=== PATIENT | female | born 1960 | race Caucasian/White ===

== ENCOUNTER → 2023-07-14 | Emergency (ER) | payer OTHER ==
[~2023-07-14] MED LIST: LIDOCAINE 4% PATCH ONE; dexAMETHasone 10 MG/ML VIAL ONE
--- OUTSIDE RECORDS SUMMARY | 2023-07-14 17:34 | XMS REPORT | Continuity of Care Document ---
Author Name Unknown Address [address] [facility] [address] [facility] [address] [place] [address] [facility] thconnect Address [address] [place] [address] Care Team Providers Care Model Maker Firearms Name Role Phone Damian Ling Primary Care Physician [phone] [email or web address] Attending Clinician Unavaila Tammy Cheung MD Attending Clinician [phone], [facility] Attending Clinician Unavailable TAMMY SPIVEY Attending Clinician Unavail able TAMMY SPIVEY Attending Clinician Unavail able Vincent RN, Matthew Attending Clinician Unavailab le Doctor Unassigned, [place] Attending Clinician U navailable [email or web address] Admitting Clinician Unavaildaria hooper Payers Payer Name Policy Type Policy Number Effective Date Expirati on Date Source Problems Condition Name Condition Details Condition Category Status Onset Date Resolution Date Last Treatment Date Treating Clinician Comments Source Hypothyroi dism Hypothyroi dism Disease Active 08-22 00:00: 00 Overview: Formattin g of this note might be different from the original. ICD10 Diagnosis Term Law Researcher Utility [facility] Chronic depressive personalit y disorder Chronic depressive personalit y disorder Disease Active 08-22 00:00: 00 [facility] Allergies, Adverse Reactions, Alerts Allergy Name Allergy Type Status Severity Reaction(s) Onset Date Inactive Date Treating Clinician Comments Source Penicill ins Propensi ty to adverse reaction s Active Rash 08-22 00:00: 00 [facility] PENICILL INS Drug Class Active Rash 08-22 00:00: 00 [facility] Social History Social Habit Start Date Stop Date Quantity Comments Source Exposure to SARS-CoV-2 (event) Not sure [facility] History SDOH Alcohol Frequency [facility] History SDOH Alcohol Std Drinks [facility] History SDOH Alcohol Binge [facility] Alcohol intake 2020-09-17 00:00:00 2020-09-17 00:00:00 Current drinker of alcohol (finding) [facility] Tobacco use and exposure 2020-02-20 00:00:00 2020-02-20 00:00:00 Never used [facility] History of tobacco use 2020-02-17 00:00:00 Smoker [facility] Alcohol Comment 2018-03-16 00:00:00 2018-03-16 00:00:00 occaisonal [facility] Sex Ass[birth year] At 1960 00:00:00 1960 00:00:00 [facility] Smoking Status Start Date Stop Date Source Former smoker 2020-02-20 00:00:00 2020-02-20 00:00:00 [facility] Current every day smoker 2018-05-25 00:00:00 [facility] Medications Ordered Medication Name Filled Medication Name Start Date Stop Date Current Medication? Ordering Clinician Indication Dosage Frequency Signature (SIG) Comments Components Source TRAZODONE 50 mg tablet 07-22 00:00: 00 Yes [id number] 100mg TAKE 2 TABLETS BY MOUTH AT BEDTIME [facility] TRAZODONE 50 mg tablet 01-25 00:00: 00 Yes [id number] 100mg TAKE 2 TABLETS BY MOUTH AT BEDTIME [facility] TRAZODONE 50 mg tablet 01-25 00:00: 00 Yes [id number] 100mg TAKE 2 TABLETS BY MOUTH AT BEDTIME [facility] TRAZODONE 50 mg tablet 01-25 00:00: 00 07-22 00:00 :00 No [id number] 100mg TAKE 2 TABLETS BY MOUTH AT BEDTIME [facility] azaTHIOprin e 50 mg tablet 11-08 00:00: 00 Yes [id number] TAKE 2 TABLETS BY MOUTH TWICE A DAY [facility] azaTHIOprin e 50 mg tablet 0 11-08 00:00: 00 Yes [id number] TAKE 2 TABLETS BY MOUTH TWICE A DAY [facility] azaTHIOprin e 50 mg tablet 0 11-08 00:00: 00 Yes [id number] TAKE 2 TABLETS BY MOUTH TWICE A DAY [facility] azaTHIOprin e 50 mg tablet 0 11-08 00:00: 00 Yes [id number] TAKE 2 TABLETS BY MOUTH TWICE A DAY [facility] azaTHIOprin e 50 mg tablet 0 11-08 00:00: 00 Yes [id number] TAKE 2 TABLETS BY MOUTH TWICE A DAY [facility] TRAZODONE 50 MG ORAL TAB 0 09-17 16:37: 11 09-17 00:00 :00 No 1 DAILY [facility] TRAZODONE 50 MG ORAL TAB 0 09-17 16:37: 11 09-17 00:00 :00 No 1 DAILY [facility] topiramate 50 mg tablet 09-17 00:00: 00 Yes 50mg 1 tablet 2 (two) times daily. [facility] pyridostigm ine (MESTINON) 60 mg tablet 09-17 00:00: 00 Yes [id number] 60mg Take 1 tablet by mouth 4 (four) times daily. [facility] traZODone 50 mg tablet 0 09-17 00:00: 00 Yes [id number] 100mg Take 2 tablets by mouth at bedtime. [facility] azaTHIOprin e 50 mg tablet 0 09-17 00:00: 00 Yes [id number] TAKE 2 TABLETS BY MOUTH TWICE A DAY [facility] pyridostigm ine (MESTINON) 60 mg tablet 09-17 00:00: 00 Yes [id number] 60mg Take 1 tablet by mouth 4 (four) times daily. [facility] traZODone 50 mg tablet 0 09-17 00:00: 00 Yes [id number] 100mg Take 2 tablets by mouth at bedtime. [facility] azaTHIOprin e 50 mg tablet 09-17 00:00: 00 Yes [id number] TAKE 2 TABLETS BY MOUTH TWICE A DAY [facility] topiramate 50 mg tablet 09-17 00:00: 00 Yes 50mg Take 1 tablet by mouth 2 (two) times daily. [facility] pyridostigm ine (MESTINON) 60 mg tablet 09-17 00:00: 00 Yes [id number] 60mg Take 1 tablet by mouth 4 (four) times daily. [facility] traZODone 50 mg tablet 09-17 00:00: 00 Yes [id number] 100mg Take 2 tablets by mouth at bedtime. [facility] azaTHIOprin e 50 mg tablet 09-17 00:00: 00 Yes [id number] TAKE 2 TABLETS BY MOUTH TWICE A DAY [facility] pyridostigm ine (MESTINON) 60 mg tablet 09-17 00:00: 00 Yes [id number] 60mg Take 1 tablet by mouth 4 (four) times daily. [facility] traZODone 50 mg tablet 09-17 00:00: 00 Yes [id number] 100mg Take 2 tablets by mouth at bedtime. [facility] azaTHIOprin e 50 mg tablet 09-17 00:00: 00 Yes [id number] TAKE 2 TABLETS BY MOUTH TWICE A DAY [facility] pyridostigm ine (MESTINON) 60 mg tablet 09-17 00:00: 00 Yes [id number] 60mg Take 1 tablet by mouth 4 (four) times daily. [facility] traZODone 50 mg tablet 09-17 00:00: 00 Yes [id number] 100mg Take 2 tablets by mouth at bedtime. [facility] topiramate 50 mg tablet 09-17 00:00: 00 Yes 50mg Take 1 tablet by mouth 2 (two) times daily. [facility] pyridostigm ine (MESTINON) 60 mg tablet 09-17 00:00: 00 Yes [id number] 60mg Take 1 tablet by mouth 4 (four) times daily. [facility] traZODone 50 mg tablet 09-17 00:00: 00 Yes [id number] 100mg Take 2 tablets by mouth at bedtime. [facility] topiramate 50 mg tablet 09-17 00:00: 00 Yes 50mg Take 1 tablet by mouth 2 (two) times daily. [facility] pyridostigm ine (MESTINON) 60 mg tablet 09-17 00:00: 00 Yes [id number] 60mg Take 1 tablet by mouth 4 (four) times daily. [facility] pyridostigm ine (MESTINON) 60 mg tablet 09-17 00:00: 00 Yes [id number] 60mg Take 1 tablet by mouth 4 (four) times daily. [facility] topiramate 50 mg tablet 09-17 00:00: 00 Yes 50mg Take 1 tablet by mouth 2 (two) times daily. [facility] topiramate 50 mg tablet 09-17 00:00: 00 Yes 50mg Take 1 tablet by mouth 2 (two) times daily. [facility] pyridostigm ine (MESTINON) 60 mg tablet 09-17 00:00: 00 Yes [id number] 60mg Take 1 tablet by mouth 4 (four) times daily. [facility] topiramate 50 mg tablet 09-17 00:00: 00 Yes 50mg Take 1 tablet by mouth 2 (two) times daily. [facility] traZODone 50 mg tablet 09-17 00:00: 00 01-25 00:00 :00 No [id number] 100mg Take 2 tablets by mouth at bedtime. [facility] traZODone 50 mg tablet 09-17 00:00: 00 01-25 00:00 :00 No [id number] 100mg Take 2 tablets by mouth at bedtime. [facility] azaTHIOprin e 50 mg tablet 09-17 00:00: 00 11-08 00:00 :00 No [id number] TAKE 2 TABLETS BY MOUTH TWICE A DAY [facility] topiramate 50 mg tablet 0 09-17 00:00: 00 09-17 00:00 :00 No 50mg 1 tablet 2 (two) times daily. [facility] topiramate 50 mg tablet 0 09-17 00:00: 00 09-17 00:00 :00 No 50mg 1 tablet 2 (two) times daily. [facility] topiramate 50 mg tablet 09-17 00:00: 00 09-17 00:00 :00 No 50mg 1 tablet 2 (two) times daily. [facility] azaTHIOprin e 50 mg tablet 07-18 00:00: 00 Yes [id number] TAKE 2 TABLETS BY MOUTH TWICE A DAY [facility] azaTHIOprin e 50 mg tablet 07-18 00:00: 00 09-17 00:00 :00 No [id number] TAKE 2 TABLETS BY MOUTH TWICE A DAY [facility] azaTHIOprin e 50 mg tablet 07-18 00:00: 00 09-17 00:00 :00 No [id number] TAKE 2 TABLETS BY MOUTH TWICE A DAY [facility] azaTHIOprin e 50 mg tablet 2019-05 00:00: 00 Yes [id number] TAKE 2 TABLETS BY MOUTH TWICE A DAY [facility] pyridostigm ine (MESTINON) 60 mg tablet 2019-05 00:00: 00 Yes [id number] 60mg Take 1 tablet by mouth 4 (four) times daily. [facility] pyridostigm ine (MESTINON) 60 mg tablet 2019-05 0 00:00: 00 Yes [id number] 60mg Take 1 tablet by mouth 4 (four) times daily. [facility] pyridostigm ine (MESTINON) 60 mg tablet 2019-05 0 00:00: 00 09-17 00:00 :00 No [id number] 60mg Take 1 tablet by mouth 4 (four) times daily. [facility] pyridostigm ine (MESTINON) 60 mg tablet 2019-05 00:00: 00 09-17 00:00 :00 No [id number] 60mg Take 1 tablet by mouth 4 (four) times daily. [facility] azaTHIOprin e 50 mg tablet 2019-05 00:00: 00 07-18 00:00 :00 No [id number] TAKE 2 TABLETS BY MOUTH TWICE A DAY [facility] sitagliptin phosphate (JANUVIA ORAL) 2019-05 0-05 19:51: 11 Yes Take 1 TAB-CAP/M2 by mouth daily. [facility] sitagliptin phosphate (JANUVIA ORAL) 2019-05 005 19:51: 11 Yes Take 1 TAB-CAP/M2 by mouth daily. [facility] sitagliptin phosphate (JANUVIA ORAL) 2019-05 0-05 19:51: 11 Yes Take 1 TAB-CAP/M2 by mouth daily. [facility] sitagliptin phosphate (JANUVIA ORAL) 2019-05 0-05 19:51: 11 Yes Take 1 TAB-CAP/M2 by mouth daily. [facility] sitagliptin phosphate (JANUVIA ORAL) 2019-05 005 19:51: 11 Yes Take 1 TAB-CAP/M2 by mouth daily. [facility] sitagliptin phosphate (JANUVIA ORAL) 2019-05 0-05 19:51: 11 Yes Take 1 TAB-CAP/M2 by mouth daily. [facility] sitagliptin phosphate (JANUVIA ORAL) 2019-05 0-05 19:51: 11 Yes Take 1 TAB-CAP/M2 by mouth daily. [facility] sitagliptin phosphate (JANUVIA ORAL) 2019-05 0-05 19:51: 11 Yes Take 1 TAB-CAP/M2 by mouth daily. [facility] sitagliptin phosphate (JANUVIA ORAL) 2019-05 0-05 19:51: 11 Yes Take 1 TAB-CAP/M2 by mouth daily. [facility] sitagliptin phosphate (JANUVIA ORAL) 2019-05 0-05 19:51: 11 Yes Take 1 TAB-CAP/M2 by mouth daily. [facility] sitagliptin phosphate (JANUVIA ORAL) 2019-05 19:51: 11 Yes Take 1 TAB-CAP/M2 by mouth daily. [facility] sitagliptin phosphate (JANUVIA ORAL) 2019-05 19:51: 11 Yes Take 1 TAB-CAP/M2 by mouth daily. [facility] sitagliptin phosphate (JANUVIA ORAL) 2019-05 19:51: 11 Yes Take 1 TAB-CAP/M2 by mouth daily. [facility] sitagliptin phosphate (JANUVIA ORAL) 2019-05 14:51: 11 Yes Take 1 TAB-CAP/M2 by mouth daily. [facility] azaTHIOprin e 50 mg tablet 2019-05 00:00: 00 Yes [id number] TAKE 2 TABLETS BY MOUTH TWICE A DAY [facility] pyridostigm ine (MESTINON) 60 mg tablet 2019-05 00:00: 00 Yes [id number] 60mg Take 1 tablet by mouth 4 (four) times daily. [facility] azaTHIOprin e 50 mg tablet 2019-05 00:00: 00 Yes [id number] TAKE 2 TABLETS BY MOUTH TWICE A DAY [facility] pyridostigm ine (MESTINON) 60 mg tablet 2019-05 00:00: 00 Yes [id number] 60mg Take 1 tablet by mouth 4 (four) times daily. [facility] azaTHIOprin e 50 mg tablet 2019-05 00:00: 03-09 00:00 :00 No [id number] TAKE 2 TABLETS BY MOUTH TWICE A DAY [facility] pyridostigm ine (MESTINON) 60 mg tablet 2019-05 00:00: 03-09 00:00 :00 No [id number] 60mg Take 1 tablet by mouth 4 (four) times daily. [facility] azaTHIOprin e 50 mg tablet 12-11 00:00: 00 Yes TAKE 2 TABLETS BY MOUTH TWICE A DAY [facility] azaTHIOprin e 50 mg tablet 12-11 00:00: 00 Yes TAKE 2 TABLETS BY MOUTH TWICE A DAY [facility] azaTHIOprin e 50 mg tablet 12-11 00:00: 00 Yes TAKE 2 TABLETS BY MOUTH TWICE A DAY [facility] azaTHIOprin e 50 mg tablet 12-11 00:00: 00 Yes TAKE 2 TABLETS BY MOUTH TWICE A DAY [facility] azaTHIOprin e 50 mg tablet 12-11 00:00: 00 02-19 00:00 :00 No TAKE 2 TABLETS BY MOUTH TWICE A DAY [facility] azaTHIOprin e 50 mg tablet 12-11 00:00: 00 02-19 00:00 :00 No TAKE 2 TABLETS BY MOUTH TWICE A DAY [facility] pyridostigm ine (MESTINON) 60 mg tablet 10-23 00:00: 00 Yes 60mg Take 1 tablet by mouth 4 (four) times daily. [facility] pyridostigm ine (MESTINON) 60 mg tablet 10-23 00:00: 00 Yes 60mg Take 1 tablet by mouth 4 (four) times daily. [facility] pyridostigm ine (MESTINON) 60 mg tablet 10-23 00:00: 00 Yes 60mg Take 1 tablet by mouth 4 (four) times daily. [facility] pyridostigm ine (MESTINON) 60 mg tablet 10-23 00:00: 00 Yes 60mg Take 1 tablet by mouth 4 (four) times daily. [facility] pyridostigm ine (MESTINON) 60 mg tablet 10-23 00:00: 00 Yes 60mg Take 1 tablet by mouth 4 (four) times daily. [facility] pyridostigm ine (MESTINON) 60 mg tablet 10-23 00:00: 00 02-19 00:00 :00 No 60mg Take 1 tablet by mouth 4 (four) times daily. [facility] pyridostigm ine (MESTINON) 60 mg tablet 10-23 00:00: 00 02-19 00:00 :00 No 60mg Take 1 tablet by mouth 4 (four) times daily. [facility] AZATHIOPRIN E 50 mg tablet 1 00:00: 00 Yes TAKE 2 TABLETS BY MOUTH TWICE A DAY [facility] AZATHIOPRIN E 50 mg tablet 06-09 00:00: 00 Yes TAKE 2 TABLETS BY MOUTH TWICE A DAY [facility] AZATHIOPRIN E 50 mg tablet 06-09 00:00: 00 12-11 00:00 :00 No TAKE 2 TABLETS BY MOUTH TWICE A DAY [facility] azaTHIOprin e 50 mg tablet 2018-05 00:00: 06-09 00:00 :00 No 100mg Take 2 tablets by mouth 2 (two) times daily. [facility] pyridostigm ine 60 mg tablet 01-25 00:00: 00 Yes TAKE 1 TABLET BY MOUTH 4 TIMES DAILY [facility] pyridostigm ine 60 mg tablet 01-25 00:00: 00 10-23 00:00 :00 No TAKE 1 TABLET BY MOUTH 4 TIMES DAILY [facility] sitagliptin phosphate (JANUVIA ORAL) 2017-05 20:05: 28 Yes Take 1 TAB-CAP/M2 by mouth daily. [facility] TRAZODONE 50 MG ORAL TAB 2017-05 20:05: 28 Yes 1 DAILY [facility] sitagliptin phosphate (JANUVIA ORAL) 2017-05 20:05: 28 Yes Take 1 TAB-CAP/M2 by mouth daily. [facility] TRAZODONE 50 MG ORAL TAB 2017-05 20:05: 28 Yes 1 DAILY [facility] sitagliptin phosphate (JANUVIA ORAL) 2017-05 20:05: 28 Yes Take 1 TAB-CAP/M2 by mouth daily. [facility] TRAZODONE 50 MG ORAL TAB 2017-05 20:05: 28 Yes 1 DAILY [facility] TRAZODONE 50 MG ORAL TAB 2017-05 20:05: 28 Yes 1 DAILY [facility] TRAZODONE 50 MG ORAL TAB 2017-05 20:05: 28 Yes 1 DAILY [facility] TRAZODONE 50 MG ORAL TAB 2017-05 20:05: 28 Yes 1 DAILY [facility] TRAZODONE 50 MG ORAL TAB 2017-05 20:05: 28 Yes 1 DAILY [facility] sitagliptin phosphate (JANUVIA ORAL) 2017-05 20:05: 28 Yes Take 1 TAB-CAP/M2 by mouth daily. [facility] TRAZODONE 50 MG ORAL TAB 2017-05 20:05: 28 Yes 1 DAILY [facility] sitagliptin phosphate (JANUVIA ORAL) 2017-05 20:05: 28 Yes Take 1 TAB-CAP/M2 by mouth daily. [facility] TRAZODONE 50 MG ORAL TAB 2017-05 20:05: 28 Yes 1 DAILY [facility] sitagliptin phosphate (JANUVIA ORAL) 2017-05 20:05: 28 Yes Take 1 TAB-CAP/M2 by mouth daily. [facility] TRAZODONE 50 MG ORAL TAB 2017-05 20:05: 28 Yes 1 DAILY [facility] metoprolol succinate XL 25 mg 24 hr tablet 2017-05 00:00: 00 Yes [facility] triamterene -hydrochlor othiazide 37.5-25 mg per capsule 2017-05 00:00: 00 Yes [facility] metoprolol succinate XL 25 mg 24 hr tablet 2017-05 00:00: 00 Yes [facility] triamterene -hydrochlor othiazide 37.5-25 mg per capsule 2017-05 00:00: 00 Yes [facility] metoprolol succinate XL 25 mg 24 hr tablet 2017-05 00:00: 00 Yes [facility] triamterene -hydrochlor othiazide 37.5-25 mg per capsule 2017-05 00:00: 00 Yes [facility] metoprolol succinate XL 25 mg 24 hr tablet 2017-05 00:00: 00 Yes [facility] triamterene -hydrochlor othiazide 37.5-25 mg per capsule 2017-05 00:00: 00 Yes [facility] metoprolol succinate XL 25 mg 24 hr tablet 2017-05 00:00: 00 Yes [facility] triamterene -hydrochlor othiazide 37.5-25 mg per capsule 2017-05 00:00: 00 Yes [facility] metoprolol succinate XL 25 mg 24 hr tablet 2017-05 00:00: 00 Yes [facility] triamterene -hydrochlor othiazide 37.5-25 mg per capsule 2017-05 00:00: 00 Yes [facility] metoprolol succinate XL 25 mg 24 hr tablet 2017-05 00:00: 00 Yes [facility] triamterene -hydrochlor othiazide 37.5-25 mg per capsule 2017-05 00:00: 00 Yes [facility] metoprolol succinate XL 25 mg 24 hr tablet 2017-05 00:00: 00 Yes [facility] triamterene -hydrochlor othiazide 37.5-25 mg per capsule 2017-05 00:00: 00 Yes [facility] metoprolol succinate XL 25 mg 24 hr tablet 2017-05 00:00: 00 Yes [facility] triamterene -hydrochlor othiazide 37.5-25 mg per capsule 2017-05 00:00: 00 Yes [facility] metoprolol succinate XL 25 mg 24 hr tablet 2017-05 00:00: 00 Yes [facility] triamterene -hydrochlor othiazide 37.5-25 mg per capsule 2017-05 00:00: 00 Yes [facility] metoprolol succinate XL 25 mg 24 hr tablet 2017-05 00:00: 00 Yes [facility] triamterene -hydrochlor othiazide 37.5-25 mg per capsule 2017-05 00:00: 00 Yes [facility] metoprolol succinate XL 25 mg 24 hr tablet 2017-05 00:00: 00 Yes [facility] triamterene -hydrochlor othiazide 37.5-25 mg per capsule 2017-05 00:00: 00 Yes [facility] metoprolol succinate XL 25 mg 24 hr tablet 2017-05 00:00: 00 Yes [facility] metoprolol succinate XL 25 mg 24 hr tablet 2017-05 00:00: 00 Yes [facility] triamterene -hydrochlor othiazide 37.5-25 mg per capsule 2017-05 00:00: 00 Yes [facility] triamterene -hydrochlor othiazide 37.5-25 mg per capsule 2017-05 00:00: 00 Yes [facility] metoprolol succinate XL 25 mg 24 hr tablet 2017-05 00:00: 00 Yes [facility] triamterene -hydrochlor othiazide 37.5-25 mg per capsule 2017-05 00:00: 00 Yes [facility] metoprolol succinate XL 25 mg 24 hr tablet 2017-05 00:00: 00 Yes [facility] triamterene -hydrochlor othiazide 37.5-25 mg per capsule 2017-05 00:00: 00 Yes [facility] metoprolol succinate XL 25 mg 24 hr tablet 2017-05 00:00: 00 Yes [facility] triamterene -hydrochlor othiazide 37.5-25 mg per capsule 2017-05 00:00: 00 Yes [facility] metoprolol succinate XL 25 mg 24 hr tablet 2017-05 00:00: 00 Yes [facility] triamterene -hydrochlor othiazide 37.5-25 mg per capsule 2017-05 00:00: 00 Yes [facility] metoprolol succinate XL 25 mg 24 hr tablet 2017-05 00:00: 00 Yes [facility] triamterene -hydrochlor othiazide 37.5-25 mg per capsule 2017-05 00:00: 00 Yes [facility] metoprolol succinate XL 25 mg 24 hr tablet 2017-05 00:00: 00 Yes [facility] triamterene -hydrochlor othiazide 37.5-25 mg per capsule 2017-05 009 00:00: 00 Yes [facility] metformin ER 500 mg 24 hr tablet 2017-05 008 00:00: 00 Yes [facility] tiZANidine 2 mg tablet 2017-05 008 00:00: 00 Yes [facility] topiramate 50 mg tablet 2017-05 008 00:00: 00 Yes [facility] buPROPion XL 300 mg 24 hr tablet 2017-05 008 00:00: 00 Yes [facility] escitalopra m oxalate 20 mg tablet 2017-05 008 00:00: 00 Yes [facility] metformin ER 500 mg 24 hr tablet 2017-05 008 00:00: 00 Yes [facility] tiZANidine 2 mg tablet 2017-05 008 00:00: 00 Yes [facility] topiramate 50 mg tablet 2017-05 008 00:00: 00 Yes [facility] buPROPion XL 300 mg 24 hr tablet 2017-05 008 00:00: 00 Yes [facility] escitalopra m oxalate 20 mg tablet 2017-05 008 00:00: 00 Yes [facility] metformin ER 500 mg 24 hr tablet 2017-05 008 00:00: 00 Yes [facility] tiZANidine 2 mg tablet 2017-05 008 00:00: 00 Yes [facility] topiramate 50 mg tablet 2017-05 008 00:00: 00 Yes [facility] buPROPion XL 300 mg 24 hr tablet 2017-05 008 00:00: 00 Yes [facility] escitalopra m oxalate 20 mg tablet 2017-05 008 00:00: 00 Yes [facility] metformin ER 500 mg 24 hr tablet 2017-05 008 00:00: 00 Yes [facility] tiZANidine 2 mg tablet 2017-05 008 00:00: 00 Yes [facility] topiramate 50 mg tablet 2017-05 008 00:00: 00 Yes [facility] buPROPion XL 300 mg 24 hr tablet 2017-05 008 00:00: 00 Yes [facility] [place] [facility] escitalopra m oxalate 20 mg tablet 2017-05 008 00:00: 00 Yes [facility] metformin ER 500 mg 24 hr tablet 2017-05 008 00:00: 00 Yes [facility] tiZANidine 2 mg tablet 2017-05 008 00:00: 00 Yes [facility] topiramate 50 mg tablet 2017-05 008 00:00: 00 Yes [facility] buPROPion XL 300 mg 24 hr tablet 2017-05 0 00:00: 00 Yes [facility] escitalopra m oxalate 20 mg tablet 2017-05 0 00:00: 00 Yes [facility] metformin ER 500 mg 24 hr tablet 2017-05 0 00:00: 00 Yes [facility] tiZANidine 2 mg tablet 2017-05 0 00:00: 00 Yes [facility] topiramate 50 mg tablet 2017-05 0 00:00: 00 Yes [facility] buPROPion XL 300 mg 24 hr tablet 2017-05 0 00:00: 00 Yes [facility] escitalopra m oxalate 20 mg tablet 2017-05 008 00:00: 00 Yes [facility] metformin ER 500 mg 24 hr tablet 2017-05 008 00:00: 00 Yes [facility] tiZANidine 2 mg tablet 2017-05 008 00:00: 00 Yes [facility] topiramate 50 mg tablet 2017-05 008 00:00: 00 Yes [facility] buPROPion XL 300 mg 24 hr tablet 2017-05 008 00:00: 00 Yes [facility] escitalopra m oxalate 20 mg tablet 2017-05 008 00:00: 00 Yes [facility] metformin ER 500 mg 24 hr tablet 2017-05 008 00:00: 00 Yes [facility] tiZANidine 2 mg tablet 2017-05 008 00:00: 00 Yes [facility] buPROPion XL 300 mg 24 hr tablet 2017-05 008 00:00: 00 Yes [facility] escitalopra m oxalate 20 mg tablet 2017-05 008 00:00: 00 Yes [facility] metformin ER 500 mg 24 hr tablet 2017-05 008 00:00: 00 Yes [facility] tiZANidine 2 mg tablet 2017-05 008 00:00: 00 Yes [facility] buPROPion XL 300 mg 24 hr tablet 2017-05 008 00:00: 00 Yes [facility] escitalopra m oxalate 20 mg tablet 2017-05 0 00:00: 00 Yes [facility] metformin ER 500 mg 24 hr tablet 2017-05 0 00:00: 00 Yes [facility] tiZANidine 2 mg tablet 2017-05 0 00:00: 00 Yes [facility] buPROPion XL 300 mg 24 hr tablet 2017-05 008 00:00: 00 Yes [facility] buPROPion XL 300 mg 24 hr tablet 2017-05 008 00:00: 00 Yes [facility] escitalopra m oxalate 20 mg tablet 2017-05 0 00:00: 00 Yes [facility] metformin ER 500 mg 24 hr tablet 2017-05 008 00:00: 00 Yes [facility] tiZANidine 2 mg tablet 2017-05 008 00:00: 00 Yes [facility] escitalopra m oxalate 20 mg tablet 2017-05 008 00:00: 00 Yes [facility] buPROPion XL 300 mg 24 hr tablet 2017-05 008 00:00: 00 Yes [facility] escitalopra m oxalate 20 mg tablet 2017-05 008 00:00: 00 Yes [facility] metformin ER 500 mg 24 hr tablet 2017-05 008 00:00: 00 Yes [facility] metformin ER 500 mg 24 hr tablet 2017-05 008 00:00: 00 Yes [facility] tiZANidine 2 mg tablet 2017-05 008 00:00: 00 Yes [facility] buPROPion XL 300 mg 24 hr tablet 2017-05 008 00:00: 00 Yes [facility] escitalopra m oxalate 20 mg tablet 2017-05 008 00:00: 00 Yes [facility] metformin ER 500 mg 24 hr tablet 2017-05 008 00:00: 00 Yes [facility] tiZANidine 2 mg tablet 2017-05 008 00:00: 00 Yes [facility] tiZANidine 2 mg tablet 2017-05 008 00:00: 00 Yes [facility] buPROPion XL 300 mg 24 hr tablet 2017-05 0 00:00: 00 Yes [facility] escitalopra m oxalate 20 mg tablet 2017-05 0 00:00: 00 Yes [facility] metformin ER 500 mg 24 hr tablet 2017-05 008 00:00: 00 Yes [facility] tiZANidine 2 mg tablet 2017-05 008 00:00: 00 Yes [facility] buPROPion XL 300 mg 24 hr tablet 2017-05 008 00:00: 00 Yes [facility] escitalopra m oxalate 20 mg tablet 2017-05 008 00:00: 00 Yes [facility] metformin ER 500 mg 24 hr tablet 2017-05 008 00:00: 00 Yes [facility] tiZANidine 2 mg tablet 2017-05 008 00:00: 00 Yes [facility] buPROPion XL 300 mg 24 hr tablet 2017-05 008 00:00: 00 Yes [facility] escitalopra m oxalate 20 mg tablet 2017-05 008 00:00: 00 Yes [facility] metformin ER 500 mg 24 hr tablet 2017-05 008 00:00: 00 Yes [facility] tiZANidine 2 mg tablet 2017-05 008 00:00: 00 Yes [facility] buPROPion XL 300 mg 24 hr tablet 2017-05 008 00:00: 00 Yes [facility] escitalopra m oxalate 20 mg tablet 2017-05 008 00:00: 00 Yes [facility] metformin ER 500 mg 24 hr tablet 2017-05 008 00:00: 00 Yes [facility] tiZANidine 2 mg tablet 2017-05 008 00:00: 00 Yes [facility] topiramate 50 mg tablet 2017-05 008 00:00: 00 Yes [facility] buPROPion XL 300 mg 24 hr tablet 2017-05 008 00:00: 00 Yes [facility] escitalopra m oxalate 20 mg tablet 2017-05 008 00:00: 00 Yes [facility] metformin ER 500 mg 24 hr tablet 2017-05 008 00:00: 00 Yes [facility] tiZANidine 2 mg tablet 2017-05 008 00:00: 00 Yes [facility] topiramate 50 mg tablet 2017-05 008 00:00: 00 Yes [facility] buPROPion XL 300 mg 24 hr tablet 2017-05 008 00:00: 00 Yes [facility] escitalopra m oxalate 20 mg tablet 2017-05 008 00:00: 00 Yes [facility] metformin ER 500 mg 24 hr tablet 2017-05 008 00:00: 00 Yes [facility] tiZANidine 2 mg tablet 2017-05 008 00:00: 00 Yes [facility] topiramate 50 mg tablet 2017-05 008 00:00: 00 Yes [facility] buPROPion XL 300 mg 24 hr tablet 2017-05 008 00:00: 00 Yes [facility] escitalopra m oxalate 20 mg tablet 2017-05 008 00:00: 00 Yes [facility] topiramate 50 mg tablet 2017-05 008 00:00: 00 2020- 05- 00:00 :00 No [facility] topiramate 50 mg tablet 2017-05 0-08 00:00: 00 2020- 05-03 00:00 :00 No [facility] SYNTHROID 100 mcg tablet 2017-0 18 00:00: 00 Yes [facility] NOVOFINE 32 32 gauge x 1/4" Ndle 2017-0 18 00:00: 00 Yes [facility] SYNTHROID 100 mcg tablet 2017-0 18 00:00: 00 Yes [facility] NOVOFINE 32 32 gauge x 1/4" Ndle 2017-0 18 00:00: 00 Yes [facility] SYNTHROID 100 mcg tablet 2017-0 18 00:00: 00 Yes [facility] NOVOFINE 32 32 gauge x 1/4" Ndle 2017-0 02-02 00:00: 00 Yes [facility] SYNTHROID 100 mcg tablet 2017-0 02-02 00:00: 00 Yes [facility] NOVOFINE 32 32 gauge x 1/4" Ndle 2017-0 02-02 00:00: 00 Yes [facility] SYNTHROID 100 mcg tablet 2017-0 18 00:00: 00 Yes [facility] NOVOFINE 32 32 gauge x 1/4" Ndle 2017-0 18 00:00: 00 Yes [facility] SYNTHROID 100 mcg tablet 2017-0 18 00:00: 00 Yes [facility] NOVOFINE 32 32 gauge x 1/4" Ndle 2017-0 02-02 00:00: 00 Yes [facility] SYNTHROID 100 mcg tablet 2017-0 18 00:00: 00 Yes [facility] NOVOFINE 32 32 gauge x 1/4" Ndle 2017-0 18 00:00: 00 Yes [facility] SYNTHROID 100 mcg tablet 2017-0 18 00:00: 00 Yes [facility] NOVOFINE 32 32 gauge x 1/4" Ndle 2017-0 18 00:00: 00 Yes [facility] SYNTHROID 100 mcg tablet 2017-0 18 00:00: 00 Yes [facility] NOVOFINE 32 32 gauge x 1/4" Ndle 2018-0 18 00:00: 00 Yes [facility] SYNTHROID 100 mcg tablet 2018-0 18 00:00: 00 Yes [facility] NOVOFINE 32 32 gauge x 1/4" Ndle 2018-0 18 00:00: 00 Yes [facility] SYNTHROID 100 mcg tablet 2017-0 18 00:00: 00 Yes [facility] NOVOFINE 32 32 gauge x 1/4" Ndle 2017-0 18 00:00: 00 Yes [facility] SYNTHROID 100 mcg tablet 2017-0 18 00:00: 00 Yes [facility] SYNTHROID 100 mcg tablet 2017-0 18 00:00: 00 Yes [facility] NOVOFINE 32 32 gauge x 1/4" Ndle 2017-0 18 00:00: 00 Yes [facility] NOVOFINE 32 32 gauge x 1/4" Ndle 2017-0 18 00:00: 00 Yes [facility] SYNTHROID 100 mcg tablet 2017-0 18 00:00: 00 Yes [facility] NOVOFINE 32 32 gauge x 1/4" Ndle 2017-0 18 00:00: 00 Yes [facility] SYNTHROID 100 mcg tablet 2017-0 18 00:00: 00 Yes [facility] NOVOFINE 32 32 gauge x 1/4" Ndle 2017-0 18 00:00: 00 Yes [facility] SYNTHROID 100 mcg tablet 2017-0 18 00:00: 00 Yes [facility] NOVOFINE 32 32 gauge x 1/4" Ndle 2017-0 18 00:00: 00 Yes [facility] SYNTHROID 100 mcg tablet 2017-0 18 00:00: 00 Yes [facility] NOVOFINE 32 32 gauge x 1/4" Ndle 2017-0 18 00:00: 00 Yes [facility] SYNTHROID 100 mcg tablet 2017-0 18 00:00: 00 Yes [facility] NOVOFINE 32 32 gauge x 1/4" Ndle 0 18 00:00: 00 Yes [facility] SYNTHROID 100 mcg tablet 2017-0 18 00:00: 00 Yes [facility] NOVOFINE 32 32 gauge x 1/4" Ndle 2017-0 18 00:00: 00 Yes [facility] SYNTHROID 100 mcg tablet 2018-0 18 00:00: 00 Yes [facility] NOVOFINE 32 32 gauge x 1/4" Ndle 0 18 00:00: 00 Yes [facility] LEVOTHYROXI NE 112 MCG ORAL TAB 2008- 0-30 00:00: 00 Yes [id number] 1 by mouth every day [facility] LEVOTHYROXI NE 112 MCG ORAL TAB 2008- 030 00:00: 00 Yes [id number] 1 by mouth every day [facility] LEVOTHYROXI NE 112 MCG ORAL TAB 2008- 030 00:00: 00 Yes [id number] 1 by mouth every day [facility] LEVOTHYROXI NE 112 MCG ORAL TAB 2008-1 030 00:00: 00 Yes [id number] 1 by mouth every day [facility] LEVOTHYROXI NE 112 MCG ORAL TAB 2008- 030 00:00: 00 Yes [id number] 1 by mouth every day [facility] LEVOTHYROXI NE 112 MCG ORAL TAB 2008-1 0-30 00:00: 00 Yes [id number] 1 by mouth every day [facility] LEVOTHYROXI NE 112 MCG ORAL TAB 2008-1 0-30 00:00: 00 Yes [id number] 1 by mouth every day [facility] LEVOTHYROXI NE 112 MCG ORAL TAB 2008-1 0-30 00:00: 00 Yes [id number] 1 by mouth every day [facility] LEVOTHYROXI NE 112 MCG ORAL TAB 2008-1 030 00:00: 00 Yes [id number] 1 by mouth every day [facility] LEVOTHYROXI NE 112 MCG ORAL TAB 2008-1 0-30 00:00: 00 Yes [id number] 1 by mouth every day [facility] LEVOTHYROXI NE 112 MCG ORAL TAB 2009- 0-30 00:00: 00 Yes [id number] 1 by mouth every day [facility] LEVOTHYROXI NE 112 MCG ORAL TAB 2009-1 0-30 00:00: 00 Yes [id number] 1 by mouth every day [facility] LEVOTHYROXI NE 112 MCG ORAL TAB 2008-1 0-30 00:00: 00 Yes [id number] 1 by mouth every day [facility] LEVOTHYROXI NE 112 MCG ORAL TAB 2008-1 0-30 00:00: 00 Yes [id number] 1 by mouth every day [facility] LEVOTHYROXI NE 112 MCG ORAL TAB 2008-1 0-30 00:00: 00 Yes [id number] 1 by mouth every day [facility] LEVOTHYROXI NE 112 MCG ORAL TAB 2008- 0-30 00:00: 00 Yes [id number] 1 by mouth every day [facility] LEVOTHYROXI NE 112 MCG ORAL TAB 2008-1 0-30 00:00: 00 Yes [id number] 1 by mouth every day [facility] LEVOTHYROXI NE 112 MCG ORAL TAB 2008-1 0-30 00:00: 00 Yes [id number] 1 by mouth every day [facility] LEVOTHYROXI NE 112 MCG ORAL TAB 2008-1 0-30 00:00: 00 Yes [id number] 1 by mouth every day [facility] LEVOTHYROXI NE 112 MCG ORAL TAB 2008-1 0-30 00:00: 00 Yes [id number] 1 by mouth every day [facility] Vital Signs Vital Name Observation Time Observation Value Comments S adilson Systolic blood pressure 2020-09-17 16:16:00 138 mm[Hg] [facility] Diastolic blood pressure 2020-09-17 16:16:00 85 mm[Hg] [facility] Heart rate 2020-09-17 16:16:00 63 /min [facility] Body height 2020-09-17 16:16:00 160 cm [facility] Body weight 2020-09-17 16:16:00 77.565 kg [facility] BMI 2020-09-17 16:16:00 30.29 kg/m2 [facility] Oxygen saturation in Arterial blood by Pulse oximetry 2020-09-17 16:16:00 97 /min [facility] Systolic blood pressure 2020-02-20 19:51:00 114 mm[Hg] [place] [facility] Diastolic blood pressure 2020-02-20 19:51:00 75 mm[Hg] [place] [facility] Heart rate 2020-02-20 19:51:00 60 /min [facility] 2020-02-20 19:51:00 160 cm [facility] weight 2020-02-20 19:51:00 82.101 kg [facility] BMI 2020-02-20 19:51:00 32.06 kg/m2 [facility] Oxygen saturation in Arterial blood by Pulse oximetry 2020-02-20 19:51:00 95 /min [facility] Procedures Procedure Date / Time Performed Performing Clinicia n Source CBC WITH DIFF 2020-09-17 18:12:00 Tammy Spivey [facility] ASSIGNMENT OF BENEFITS 2020-02-20 19:45:13 Docto r Unassigned, [place] [facility] Encounters Start Date/Time End Date/Time Encounter Type Admission Type [facility]ending [facility] Care Department Encounter ID Source 2023-03-17 00:00:00 2023-03-17 00:00:00 Outpatient [id number] diyala_S PRIV PRIV [id number] [facility] 2023-03-16 00:00:00 2023-03-16 00:00:00 Outpatient [id number] diyala_S PRIV PRIV [id number] [facility] 2021-07-22 00:00:00 2021-07-22 00:00:00 Tammy Kitchen [facility] 1.2.840.114 350.1.13.10 4.2.7.2.686 [id number] [facility] 2021-01-25 00:00:00 2021-01-25 00:00:00 Refill Tammy Spivey [facility] 1.2.840.114 350.1.13.10 4.2.7.2.686 [id number] [facility] 2020-11-09 00:00:00 2020-11-09 00:00:00 Telephone Tammy Spivey [facility] 1.2.840.114 350.1.13.10 4.2.7.2.686 [id number] [facility] 2020-11-07 00:00:00 2020-11-07 00:00:00 Telephone Tammy Spivey [facility] 1.2.840.114 350.1.13.10 4.2.7.2.686 [id number] [facility] 2020-09-17 13:09:04 2020-09-17 13:24:04 [employer] Visit 2, Adc Lab Tammy Spivey [facility] 1.2.840.114 350.1.13.10 4.2.7.2.686 [id number] [facility] 2020-09-17 10:53:30 2020-09-17 11:43:34 Office Visit PatricTammy [facility] 1.2.840.114 350.1.13.10 4.2.7.2.686 [id number] [facility] 2020-09-17 10:40:00 2020-09-17 10:40:00 Outpatient R TAMMY SPIVEY [facility] [id number] [facility] 2020-09-17 00:00:00 2020-09-17 00:00:00 Telephone PatricTammy [facility] 1.2.840.114 350.1.13.10 4.2.7.2.686 [id number] [facility] 2020-09-17 00:00:00 2020-09-17 00:00:00 Nurse Triage Matthew Kaur [facility] 1.2.840.114 350.1.13.10 4.2.7.2.686 [id number] [facility] 2020-07-18 00:00:00 2020-07-18 00:00:00 [facility] 1.2.840.114 350.1.13.10 4.2.7.2.686 [id number] [facility] 2020-03-07 00:00:00 2020-03-07 00:00:00 Telephone Tammy Spivey [facility] 1.2.840.114 350.1.13.10 4.2.7.2.686 [id number] [facility] 2020-02-20 14:45:57 2020-02-20 15:21:42 Office Visit Tammy Spivey [facility] 1.2.840.114 350.1.13.10 4.2.7.2.686 [id number] [facility] 2020-02-20 14:40:00 2020-02-20 14:40:00 Outpatient R TAMMY SPIVEY [facility] [id number] [facility] 2020-02-20 00:00:00 2020-02-20 00:00:00 Orders Only Doctor Unassigned, [place] [facility] 1.2.840.114 350.1.13.10 4.2.7.2.686 [id number] [facility] 2020-01-30 00:00:00 2020-01-30 00:00:00 Tammy Kitchen [facility] 1.2.840.114 350.1.13.10 4.2.7.2.686 [id number] [facility] 2020-01-23 00:00:00 2020-01-23 00:00:00 Tammy Kitchen [facility] 1.2.840.114 350.1.13.10 4.2.7.2.686 [id number] [facility] 2019-12-12 00:00:00 2019-12-12 00:00:00 Tammy Kitchen [facility] 1.2.840.114 350.1.13.10 4.2.7.2.686 [id number] [facility] 2019-10-24 00:00:00 2019-10-24 00:00:00 Telephone Tammy Spivey [facility] 1.2.840.114 350.1.13.10 4.2.7.2.686 [id number] 2019-10-24 00:00:00 2019-10-24 00:00:00 Telephone Tammy Spivey [facility] nal Building 1.2.840.114 350.1.13.10 4.2.7.2.686 [id number] [facility] 2019-06-08 00:00:00 2019-06-08 00:00:00 Tammy Kitchen [facility] 1.2.840.114 350.1.13.10 4.2.7.2.686 [id number] 2019-06-08 00:00:00 2019-06-08 00:00:00 Tammy Kitchen [facility] 1.2.840.114 350.1.13.10 4.2.7.2.686 [id number] [facility] Results Test Description Test Time Test Comments Results Result Co mments Source [facility] WITH [id number] 22:34:57* Test Item Value Reference Range Interpretation Comme nts WBC (test code = 6690-2) See_Comment [Automated messa ge] The system which generated this result transmitted reference range: 4.30 - 11.10 10*3/?L. The reference range was not used to interpret this result as normal/abnormal. RBC (test code = 789-8) See_Comment L [Automated messa ge] The system which generated this result transmitted reference range: 3.93 - 5.25 10*6/?L. The reference range was not used to interpret this result as normal/abnormal. HGB (test code = 718-7) 13.2 g/dL 11.6-15.0 HCT (test code = 4544-3) 40.7 % 35.7-45.2 MCV (test code = 787-2) 111.8 fL 80.6-95.5 H MCH (test code = 785-6) 36.3 pg 25.9-32.8 H MCHC (test code = 786-4) 32.4 g/dL 31.6-35.1 RDW-SD (test code = 10066-4) 51.8 fL 39.0-49.9 H RDW-CV (test code = 788-0) 12.5 % 12.0-15.5 PLT (test code = 777-3) See_Comment [Automated messa ge] The system which generated this result transmitted reference range: 166 - 358 10*3/?L. The reference range was not used to interpret this result as normal/abnormal. MPV (test code = 98722-6) 11.4 fL 9.5-12.9 NRBC/100 WBC (test code = 7947922970) See_Comment [Automated me ssage] The system which generated this result transmitted reference range: 0.0 - 10.0 /100 WBCs. The reference range was not used to interpret this result as normal/abnormal. NRBC x10^3 (test code = 2337614833) <0.01 See_Comment [Automated messa ge] The system which generated this result transmitted reference range: 10*3/?L. The reference range was not used to interpret this result as normal/abnormal. GRAN MAT (NEUT) % (test code = 770-8) 61.5 % IMM GRAN % (test code = 0963800121) 0.40 % LYMPH % (test code = 736-9) 29.0 % MONO % (test code = 5905-5) 6.7 % EOS % (test code = 713-8) 2.0 % BASO % (test code = 706-2) 0.4 % GRAN MAT x10^3(ANC) (test code = 7093965007) 3.15 10*3/uL 1.88-7.09 IMM GRAN x10^3 (test code = 1799945953) <0.03 0.00-0.06 LYMPH x10^3 (test code = 731-0) 1.48 10*3/uL 1.32-3.29 MONO x10^3 (test code = 742-7) 0.34 10*3/uL 0.33-0.92 EOS x10^3 (test code = 711-2) 0.10 10*3/uL 0.03-0.39 BASO x10^3 (test code = 704-7) <0.03 0.01-0.07 Lab Interpretation (test code = 31465-6) Abnormal [facility]
--- NOTE | 2023-07-14 18:45 | ER ---
Nurse's Notes [facility] Name: Reta Sutherland Age: 63 yrs Sex: Female : 1960 Arrival Date: 07/14/2023 Time: 17:29 Bed 9 Private MD: Diagnosis: Sciatica, left side Presentation: 07/14 17:41 Chief complaint: Patient states: Left hip pain that radiates down left leg onset 2 days cm10 ago. pt denies any trauma or injury. Coronavirus screen: Vaccine status: Patient reports being unvaccinated. Client denies travel out of the [place] in the last 14 days. Ebola Screen: Patient denies travel to an Ebola-affected area in the 21 days before illness onset. No symptoms or risks identified at this time. Initial Sepsis Screen: Does the patient meet any 2 criteria? No. Patient's initial sepsis screen is negative. Does the patient have a suspected source of infection? No. Patient's initial sepsis screen is negative. Risk Assessment: Do you want to hurt yourself or someone else? Patient reports no desire to harm self or others. Onset of symptoms was July 12, 2023. 17:41 Method Of Arrival: Ambulatory cm10 17:41 Acuity: DEION 4 cm10 Triage Assessment: 17:42 General: Appears in no apparent distress. comfortable, Behavior is calm, cooperative. cm10 Pain: Complains of pain in left hip Pain radiates to left leg Pain currently is 8 out of 10 on a pain scale. Historical: - Allergies: 17:42 PENICILLINS; cm10 - PMHx: 17:42 Diabetes - IDDM; Hypertension; Hypothyroidism; Osteoporosis; Cerebrovascular accident; cm10 - Immunization history:: Adult Immunizations up to date. - Social history:: Smoking status: Patient/guardian denies using tobacco. Screenin:46 Abuse screen: Denies threats or abuse. Nutritional screening: No deficits noted. ap3 Tuberculosis screening: No symptoms or risk factors identified. 18:54 [facility] ED Fall Risk Assessment (Adult) History of falling in the last 3 months, ap3 including since admission No falls in past 3 months (0 pts). Assessment: 17:57 General: Appears in no apparent distress. Behavior is calm, cooperative, appropriate ap3 for age. Pain: Complains of pain in left leg and left hip. Neuro: Level of Consciousness is awake, alert, obeys commands, Oriented to person, place, time, situation. Cardiovascular: Patient's skin is warm and dry. Respiratory: Airway is patent Respiratory effort is even, unlabored, Respiratory pattern is regular, symmetrical. Vital Signs: 17:41 BP 131 / 78; Pulse 50; Resp 16; Temp 98.7; Pulse Ox 99% on R/A; Weight 65.32 kg; Height cm10 5 ft. 2 in. ; Pain 8/10; 17:41 Body Mass Index 26.34 (65.32 kg, 157.48 cm) cm10 17:41 Pain Scale: Adult cm10 ED Course: 17:34 Patient arrived in ED. kj1 17:40 Shama Dunlap FNP-C [facility]. kb 17:40 Mark Man MD is Attending Physician. kb 17:42 Triage completed. cm10 17:42 Arm band placed on Patient placed in an exam room, on a stretcher. cm10 17:58 Patient has correct armband on for positive identification. Bed in low position. Call ap3 light in reach. Side rails up X 1. 18:53 Provided Education on: discharge instructions. ap3 18:53 No provider procedures requiring assistance completed. Patient did not have IV access ap3 during this emergency room visit. Administered Medications: 18:09 Drug: Dexamethasone IM 10 mg IM once Route: IM; Site: left vastus lateralis; ap3 18:54 Follow up: Response: No adverse reaction ap3 18:09 Drug: Lidoderm Topical Patch 5 % (700 mg/patch) 1 patches Topical once; leave on for 12 ap3 hours; cover most painful area; may cut into smaller pieces Route: Topical; Site: affected area; 18:54 Follow up: Response: No adverse reaction ap3 Medication: 17:58 VIS not applicable for this client. ap3 Outcome: 18:45 Discharge ordered by . kb 18:53 Discharged to home ambulatory, ap3 18:53 Condition: good 18:53 Discharge instructions given to patient, Instructed on discharge instructions, follow up and referral plans. medication usage, Demonstrated understanding of instructions, follow-up care, medications, Prescriptions given X 1, 18:54 Patient left the ED. ap3 Signatures: Shama Dunlap FNP-C FNP-Ckb Prokisch, Amanda, RN RN ap3 Almita Dunlap kj1 Vania Hansen, RN RN cm10
--- NOTE | 2023-07-14 18:45 | EDPHYS ---
Physician Documentation [facility] Name: Reta Sutherland Age: 63 yrs Sex: Female : 1960 Arrival Date: 07/14/2023 Time: 17:29 Bed 9 Private MD: ED Physician Mark Man HPI: 07/14 20:06 This 63 yrs old Female presents to ER via Ambulatory with complaints of Hip Pain. kb 20:06 Pt is a 63 year old female who presents for left low back/upper buttock pain that kb started 5 days ago. Reports pain radiates down left thigh. Denies injury or trauma. States she has had similar pain in the past due to sciatica, but this time it is worse. Historical: - Allergies: 17:42 PENICILLINS; cm10 - PMHx: 17:42 Diabetes - IDDM; Hypertension; Hypothyroidism; Osteoporosis; Cerebrovascular accident; cm10 - Immunization history:: Adult Immunizations up to date. - Social history:: Smoking status: Patient/guardian denies using tobacco. ROS: 20:05 Constitutional: Negative for fever, chills, and weight loss, kb 20:05 Back: Positive for pain at rest, pain with movement, radiated pain, of the left low back, 20:05 All other systems are negative, Exam: 20:05 Constitutional: This is a well developed, well nourished patient who is awake, alert, kb and in no acute distress. Head/Face: Normocephalic, atraumatic. ENT: Moist Mucous membranes Cardiovascular: Regular rate Respiratory: Respirations even and unlabored. No increased work of breathing. Talking in full sentences Skin: Warm, dry with normal turgor. Normal color. MS/ Extremity: Pulses equal, no cyanosis. Neurovascular intact. Full, normal range of motion. Neuro: Awake and alert, GCS 15, oriented to person, place, time, and situation. Moves all extremities. Normal gait. 20:05 Back: pain, that is moderate, of the left low back, ROM is normal, Vital Signs: 17:41 BP 131 / 78; Pulse 50; Resp 16; Temp 98.7; Pulse Ox 99% on R/A; Weight 65.32 kg; Height cm10 5 ft. 2 in. ; Pain 8/10; 17:41 Body Mass Index 26.34 (65.32 kg, 157.48 cm) cm10 17:41 Pain Scale: Adult cm10 MDM: 17:41 Patient medically screened. kb 20:05 Differential diagnosis: bursitis, arthritis, strain, sciatica. Data reviewed: vital kb signs, nurses notes. Test considered but Not performed: X-ray: x-ray considered but pt denies fall or injury, has no bony tenderness. Counseling: I had a detailed discussion with the patient and/or guardian regarding the historical points, exam findings, and any diagnostic results supporting the discharge/admit diagnosis, the need for outpatient follow up, a family practitioner, to return to the emergency department if symptoms worsen or persist or if there are any questions or concerns that arise at home. Administered Medications: 18:09 Drug: Dexamethasone IM 10 mg IM once Route: IM; Site: left vastus lateralis; ap3 18:54 Follow up: Response: No adverse reaction ap3 18:09 Drug: Lidoderm Topical Patch 5 % (700 mg/patch) 1 patches Topical once; leave on for 12 ap3 hours; cover most painful area; may cut into smaller pieces Route: Topical; Site: affected area; 18:54 Follow up: Response: No adverse reaction ap3 Disposition Summary: 07/14/23 18:45 Discharge Ordered Notes: Location: Home kb Condition: Stable kb Diagnosis - Sciatica, left side kb Followup: kb - With: Emergency Department - When: As needed - Reason: Worsening of condition Followup: kb - With: Private Physician - When: 2 - 3 days - Reason: Recheck today's complaints, Continuance of care, Re-evaluation by your physician Discharge Instructions: - Discharge Summary Sheet kb - Sciatica, [id number] kb Forms: - Medication Reconciliation Form kb - Thank You Letter kb - Antibiotic Education kb - Prescription Opioid Use kb - Patient Portal Instructions kb - Leadership Thank You Letter kb Prescriptions: - orphenadrine citrate 100 mg Oral Tablet Sustained Release - take 1 tablet ORAL route 2 times per day As needed; 20 tablet; Refills: 0, kb Product Selection Permitted Signatures: Shama Dunlap FNP-C FNP-Ckb Prokisch, Amanda RN RN ap3 Vania Hansen RN RN cm10
[2023-07-14 19:06] VITALS: BP 131/78; TEMP 98.7; O2SAT 99
== END ==
LOC: ER 17:29
DX: M54.32 Sciatica, left side (principal); Z88.0 Allergy status to penicillin
CPT/HCPCS: J2001; J1100

== ENCOUNTER → 2023-08-06 | Emergency (ER) | payer OTHER ==
[~2023-08-06] MED LIST changes: +BISACODYL 10 MG RECTAL SUPP ONE; +LACTULOSE 20 GM/30 ML UCUP ONE; -LIDOCAINE 4% PATCH ONE; +NA CHLORIDE 0.9% 1,000 ML ONE; +ONDANSETRON 4 MG/2 ML VIAL ONE; -dexAMETHasone 10 MG/ML VIAL ONE
--- OUTSIDE RECORDS SUMMARY | 2023-08-06 11:10 | XMS REPORT | Continuity of Care Document ---
Author Name Unknown Address [address] [facility] [address] [place] [address] [facility] thconnect Address [address] [facility] [address] [place] [address] Care Team Providers Care Customer Response Representative Name Role Phone Damian Ling Primary Care Physician [phone] [email or web address] Attending Clinician Unavaila Tammy Cheung MD Attending Clinician 2, [facility] Attending Clinician Unavailable TAMMY SPIVEY Attending Clinician Unavail able TAMMY SPIVEY Attending Clinician Unavail able Vincent RN, Matthew Attending Clinician Unavailab le Doctor Unassigned, [place] Attending Clinician U navailable [email or web address] Admitting Clinician Unavaila rufus Payers Payer Name Policy Type Policy Number Effective Date Expirati on Date Source Problems Condition Name Condition Details Condition Category Status Onset Date Resolution Date Last Treatment Date Treating Clinician Comments Source Hypothyroi dism Hypothyroi dism Disease Active 08-22 00:00: 00 Overview: Formattin g of this note might be different from the original. ICD10 Diagnosis Term Associate Team Physician Utility [facility] Chronic depressive personalit y disorder Chronic depressive personalit y disorder Disease Active 08-22 00:00: 00 [facility] Allergies, Adverse Reactions, Alerts Allergy Name Allergy Type Status Severity Reaction(s) Onset Date Inactive Date Treating Clinician Comments Source Penicill ins Propensi ty to adverse reaction s Active Rash 08-22 00:00: 00 [facility] PENICILL INS Drug Class Active Rash 08-22 00:00: 00 [facility] Social History Social Habit Start Date Stop Date Quantity Comments Source Exposure to SARS-CoV-2 (event) Not sure [facility] History SDOH Alcohol Frequency [facility] History SDOH Alcohol Std Drinks [facility] History SDOH Alcohol Binge [facility] Alcohol intake 2020-09-17 00:00:00 2020-09-17 00:00:00 Current drinker of alcohol (finding) [facility] Tobacco use and exposure 2020-02-20 00:00:00 2020-02-20 00:00:00 Never used [facility] History of tobacco use 2020-02-17 00:00:00 Smoker [facility] Alcohol Comment 2018-03-16 00:00:00 2018-03-16 00:00:00 occaisonal [facility] Sex Ass[birth year] At 1960 00:00:00 1960 00:00:00 [facility] Smoking Status Start Date Stop Date Source Former smoker 2020-02-20 00:00:00 2020-02-20 00:00:00 [facility] Current every day smoker 2018-05-25 00:00:00 [facility] Medications Ordered Medication Name Filled Medication Name Start Date Stop Date Current Medication? Ordering Clinician Indication Dosage Frequency Signature (SIG) Comments Components Source TRAZODONE 50 mg tablet 07-22 00:00: 00 Yes [id number] 100mg TAKE 2 TABLETS BY MOUTH AT BEDTIME [facility] TRAZODONE 50 mg tablet 01-25 00:00: 00 Yes [id number] 100mg TAKE 2 TABLETS BY MOUTH AT BEDTIME [facility] TRAZODONE 50 mg tablet 01-25 00:00: 00 Yes [id number] 100mg TAKE 2 TABLETS BY MOUTH AT BEDTIME [facility] TRAZODONE 50 mg tablet 01-25 00:00: 00 07-22 00:00 :00 No [id number] 100mg TAKE 2 TABLETS BY MOUTH AT BEDTIME [facility] azaTHIOprin e 50 mg tablet 11-08 00:00: 00 Yes [id number] TAKE 2 TABLETS BY MOUTH TWICE A DAY [facility] azaTHIOprin e 50 mg tablet 11-08 00:00: 00 Yes [id number] TAKE 2 TABLETS BY MOUTH TWICE A DAY [facility] azaTHIOprin e 50 mg tablet 0 11-08 00:00: 00 Yes [id number] TAKE 2 TABLETS BY MOUTH TWICE A DAY [facility] azaTHIOprin e 50 mg tablet 0 11-08 00:00: 00 Yes [id number] TAKE 2 TABLETS BY MOUTH TWICE A DAY [facility] azaTHIOprin e 50 mg tablet 11-08 00:00: 00 Yes [id number] TAKE 2 TABLETS BY MOUTH TWICE A DAY [facility] TRAZODONE 50 MG ORAL TAB 09-17 16:37: 11 09-17 00:00 :00 No 1 DAILY [facility] TRAZODONE 50 MG ORAL TAB 09-17 16:37: 11 09-17 00:00 :00 No 1 DAILY [facility] topiramate 50 mg tablet 09-17 00:00: 00 Yes 50mg 1 tablet 2 (two) times daily. [facility] pyridostigm ine (MESTINON) 60 mg tablet 09-17 00:00: 00 Yes [id number] 60mg Take 1 tablet by mouth 4 (four) times daily. [facility] traZODone 50 mg tablet 09-17 00:00: 00 Yes [id number] 100mg Take 2 tablets by mouth at bedtime. [facility] azaTHIOprin e 50 mg tablet 09-17 00:00: 00 Yes [id number] TAKE 2 TABLETS BY MOUTH TWICE A DAY [facility] pyridostigm ine (MESTINON) 60 mg tablet 09-17 00:00: 00 Yes [id number] 60mg Take 1 tablet by mouth 4 (four) times daily. [facility] traZODone 50 mg tablet 09-17 00:00: 00 Yes [id number] 100mg Take 2 tablets by mouth at bedtime. [facility] azaTHIOprin e 50 mg tablet 09-17 00:00: 00 Yes [id number] TAKE 2 TABLETS BY MOUTH TWICE A DAY [facility] topiramate 50 mg tablet 09-17 00:00: 00 Yes 50mg Take 1 tablet by mouth 2 (two) times daily. [facility] pyridostigm ine (MESTINON) 60 mg tablet 09-17 00:00: 00 Yes [id number] 60mg Take 1 tablet by mouth 4 (four) times daily. [facility] traZODone 50 mg tablet 09-17 00:00: 00 Yes [id number] 100mg Take 2 tablets by mouth at bedtime. [facility] azaTHIOprin e 50 mg tablet 09-17 00:00: 00 Yes [id number] TAKE 2 TABLETS BY MOUTH TWICE A DAY [facility] pyridostigm ine (MESTINON) 60 mg tablet 09-17 00:00: 00 Yes [id number] 60mg Take 1 tablet by mouth 4 (four) times daily. [facility] traZODone 50 mg tablet 09-17 00:00: 00 Yes [id number] 100mg Take 2 tablets by mouth at bedtime. [facility] azaTHIOprin e 50 mg tablet 09-17 00:00: 00 Yes [id number] TAKE 2 TABLETS BY MOUTH TWICE A DAY [facility] pyridostigm ine (MESTINON) 60 mg tablet 09-17 00:00: 00 Yes [id number] 60mg Take 1 tablet by mouth 4 (four) times daily. [facility] traZODone 50 mg tablet 09-17 00:00: 00 Yes [id number] 100mg Take 2 tablets by mouth at bedtime. [facility] topiramate 50 mg tablet 09-17 00:00: 00 Yes 50mg Take 1 tablet by mouth 2 (two) times daily. [facility] pyridostigm ine (MESTINON) 60 mg tablet 09-17 00:00: 00 Yes [id number] 60mg Take 1 tablet by mouth 4 (four) times daily. [facility] traZODone 50 mg tablet 09-17 00:00: 00 Yes [id number] 100mg Take 2 tablets by mouth at bedtime. [facility] topiramate 50 mg tablet 09-17 00:00: 00 Yes 50mg Take 1 tablet by mouth 2 (two) times daily. [facility] pyridostigm ine (MESTINON) 60 mg tablet 09-17 00:00: 00 Yes [id number] 60mg Take 1 tablet by mouth 4 (four) times daily. [facility] pyridostigm ine (MESTINON) 60 mg tablet 09-17 00:00: 00 Yes [id number] 60mg Take 1 tablet by mouth 4 (four) times daily. [facility] topiramate 50 mg tablet 09-17 00:00: 00 Yes 50mg Take 1 tablet by mouth 2 (two) times daily. [facility] topiramate 50 mg tablet 09-17 00:00: 00 Yes 50mg Take 1 tablet by mouth 2 (two) times daily. [facility] pyridostigm ine (MESTINON) 60 mg tablet 09-17 00:00: 00 Yes [id number] 60mg Take 1 tablet by mouth 4 (four) times daily. [facility] topiramate 50 mg tablet 09-17 00:00: 00 Yes 50mg Take 1 tablet by mouth 2 (two) times daily. [facility] traZODone 50 mg tablet 09-17 00:00: 00 01-25 00:00 :00 No [id number] 100mg Take 2 tablets by mouth at bedtime. [facility] traZODone 50 mg tablet 09-17 00:00: 00 01-25 00:00 :00 No [id number] 100mg Take 2 tablets by mouth at bedtime. [facility] azaTHIOprin e 50 mg tablet 09-17 00:00: 00 11-08 00:00 :00 No [id number] TAKE 2 TABLETS BY MOUTH TWICE A DAY [facility] topiramate 50 mg tablet 09-17 00:00: 00 09-17 00:00 :00 No 50mg 1 tablet 2 (two) times daily. [facility] topiramate 50 mg tablet 09-17 00:00: 00 09-17 00:00 :00 No 50mg 1 tablet 2 (two) times daily. [facility] topiramate 50 mg tablet 09-17 00:00: 00 09-17 00:00 :00 No 50mg 1 tablet 2 (two) times daily. [facility] azaTHIOprin e 50 mg tablet 07-18 00:00: 00 Yes [id number] TAKE 2 TABLETS BY MOUTH TWICE A DAY [facility] azaTHIOprin e 50 mg tablet 07-18 00:00: 00 09-17 00:00 :00 No [id number] TAKE 2 TABLETS BY MOUTH TWICE A DAY [facility] azaTHIOprin e 50 mg tablet 07-18 00:00: 00 09-17 00:00 :00 No [id number] TAKE 2 TABLETS BY MOUTH TWICE A DAY [facility] azaTHIOprin e 50 mg tablet 2019-05 00:00: 00 Yes [id number] TAKE 2 TABLETS BY MOUTH TWICE A DAY [facility] pyridostigm ine (MESTINON) 60 mg tablet 2019-05 00:00: 00 Yes [id number] 60mg Take 1 tablet by mouth 4 (four) times daily. [facility] pyridostigm ine (MESTINON) 60 mg tablet 2019-05 0 00:00: 00 Yes [id number] 60mg Take 1 tablet by mouth 4 (four) times daily. [facility] pyridostigm ine (MESTINON) 60 mg tablet 2019-05 0 00:00: 00 09-17 00:00 :00 No [id number] 60mg Take 1 tablet by mouth 4 (four) times daily. [facility] pyridostigm ine (MESTINON) 60 mg tablet 2019-05 00:00: 00 09-17 00:00 :00 No [id number] 60mg Take 1 tablet by mouth 4 (four) times daily. [facility] azaTHIOprin e 50 mg tablet 2019-05 00:00: 00 07-18 00:00 :00 No [id number] TAKE 2 TABLETS BY MOUTH TWICE A DAY [facility] sitagliptin phosphate (JANUVIA ORAL) 2019-05 005 19:51: 11 Yes Take 1 TAB-CAP/M2 by mouth daily. [facility] sitagliptin phosphate (JANUVIA ORAL) 2019-05 005 19:51: 11 Yes Take 1 TAB-CAP/M2 by mouth daily. [facility] sitagliptin phosphate (JANUVIA ORAL) 2019-05 0-05 19:51: 11 Yes Take 1 TAB-CAP/M2 by mouth daily. [facility] sitagliptin phosphate (JANUVIA ORAL) 2019-05 0-05 19:51: 11 Yes Take 1 TAB-CAP/M2 by mouth daily. [facility] sitagliptin phosphate (JANUVIA ORAL) 2019-05 0-05 19:51: 11 Yes Take 1 TAB-CAP/M2 by mouth daily. [facility] sitagliptin phosphate (JANUVIA ORAL) 2019-05 0-05 19:51: 11 Yes Take 1 TAB-CAP/M2 by mouth daily. [facility] sitagliptin phosphate (JANUVIA ORAL) 2019-05 0-05 19:51: 11 Yes Take 1 TAB-CAP/M2 by mouth daily. [facility] sitagliptin phosphate (JANUVIA ORAL) 2019-05 0-05 19:51: 11 Yes Take 1 TAB-CAP/M2 by mouth daily. [facility] sitagliptin phosphate (JANUVIA ORAL) 2019-05 0-05 19:51: 11 Yes Take 1 TAB-CAP/M2 by mouth daily. [facility] sitagliptin phosphate (JANUVIA ORAL) 2019-05 0-05 19:51: 11 Yes Take 1 TAB-CAP/M2 by mouth daily. [facility] sitagliptin phosphate (JANUVIA ORAL) 2019-05 19:51: 11 Yes Take 1 TAB-CAP/M2 by mouth daily. [facility] sitagliptin phosphate (JANUVIA ORAL) 2019-05 0 19:51: 11 Yes Take 1 TAB-CAP/M2 by mouth daily. [facility] sitagliptin phosphate (JANUVIA ORAL) 2019-05 0 19:51: 11 Yes Take 1 TAB-CAP/M2 by mouth daily. [facility] sitagliptin phosphate (JANUVIA ORAL) 2019-05 14:51: 11 Yes Take 1 TAB-CAP/M2 by mouth daily. [facility] azaTHIOprin e 50 mg tablet 2019-05 00:00: 00 Yes [id number] TAKE 2 TABLETS BY MOUTH TWICE A DAY [facility] pyridostigm ine (MESTINON) 60 mg tablet 2019-05 00:00: 00 Yes [id number] 60mg Take 1 tablet by mouth 4 (four) times daily. [facility] azaTHIOprin e 50 mg tablet 2019-05 00:00: 00 Yes [id number] TAKE 2 TABLETS BY MOUTH TWICE A DAY [facility] pyridostigm ine (MESTINON) 60 mg tablet 2019-05 00:00: 00 Yes [id number] 60mg Take 1 tablet by mouth 4 (four) times daily. [facility] azaTHIOprin e 50 mg tablet 2019-05 00:00: 03-09 00:00 :00 No [id number] TAKE 2 TABLETS BY MOUTH TWICE A DAY [facility] pyridostigm ine (MESTINON) 60 mg tablet 2019-05 0 00:00: 03-09 00:00 :00 No [id number] 60mg Take 1 tablet by mouth 4 (four) times daily. [facility] azaTHIOprin e 50 mg tablet 12-11 00:00: 00 Yes TAKE 2 TABLETS BY MOUTH TWICE A DAY [facility] azaTHIOprin e 50 mg tablet 12-11 00:00: 00 Yes TAKE 2 TABLETS BY MOUTH TWICE A DAY [facility] azaTHIOprin e 50 mg tablet 12-11 00:00: 00 Yes TAKE 2 TABLETS BY MOUTH TWICE A DAY [facility] azaTHIOprin e 50 mg tablet 12-11 00:00: 00 Yes TAKE 2 TABLETS BY MOUTH TWICE A DAY [facility] azaTHIOprin e 50 mg tablet 12-11 00:00: 00 02-19 00:00 :00 No TAKE 2 TABLETS BY MOUTH TWICE A DAY [facility] azaTHIOprin e 50 mg tablet 12-11 00:00: 00 02-19 00:00 :00 No TAKE 2 TABLETS BY MOUTH TWICE A DAY [facility] pyridostigm ine (MESTINON) 60 mg tablet 10-23 00:00: 00 Yes 60mg Take 1 tablet by mouth 4 (four) times daily. [facility] pyridostigm ine (MESTINON) 60 mg tablet 10-23 00:00: 00 Yes 60mg Take 1 tablet by mouth 4 (four) times daily. [facility] pyridostigm ine (MESTINON) 60 mg tablet 10-23 00:00: 00 Yes 60mg Take 1 tablet by mouth 4 (four) times daily. [facility] pyridostigm ine (MESTINON) 60 mg tablet 10-23 00:00: 00 Yes 60mg Take 1 tablet by mouth 4 (four) times daily. [facility] pyridostigm ine (MESTINON) 60 mg tablet 10-23 00:00: 00 Yes 60mg Take 1 tablet by mouth 4 (four) times daily. [facility] pyridostigm ine (MESTINON) 60 mg tablet 10-23 00:00: 00 02-19 00:00 :00 No 60mg Take 1 tablet by mouth 4 (four) times daily. [facility] pyridostigm ine (MESTINON) 60 mg tablet 10-23 00:00: 00 02-19 00:00 :00 No 60mg Take 1 tablet by mouth 4 (four) times daily. [facility] AZATHIOPRIN E 50 mg tablet 1 00:00: 00 Yes TAKE 2 TABLETS BY MOUTH TWICE A DAY [facility] AZATHIOPRIN E 50 mg tablet 06-09 00:00: 00 Yes TAKE 2 TABLETS BY MOUTH TWICE A DAY [facility] AZATHIOPRIN E 50 mg tablet 06-09 00:00: 00 12-11 00:00 :00 No TAKE 2 TABLETS BY MOUTH TWICE A DAY [facility] azaTHIOprin e 50 mg tablet 2018-05 00:00: 06-09 00:00 :00 No 100mg Take 2 tablets by mouth 2 (two) times daily. [facility] pyridostigm ine 60 mg tablet 01-25 00:00: 00 Yes TAKE 1 TABLET BY MOUTH 4 TIMES DAILY [facility] pyridostigm ine 60 mg tablet 01-25 00:00: 00 10-23 00:00 :00 No TAKE 1 TABLET BY MOUTH 4 TIMES DAILY [facility] sitagliptin phosphate (JANUVIA ORAL) 2017-05 20:05: 28 Yes Take 1 TAB-CAP/M2 by mouth daily. [facility] TRAZODONE 50 MG ORAL TAB 2017-05 20:05: 28 Yes 1 DAILY [facility] sitagliptin phosphate (JANUVIA ORAL) 2017-05 20:05: 28 Yes Take 1 TAB-CAP/M2 by mouth daily. [facility] TRAZODONE 50 MG ORAL TAB 2017-05 20:05: 28 Yes 1 DAILY [facility] sitagliptin phosphate (JANUVIA ORAL) 2017-05 0 20:05: 28 Yes Take 1 TAB-CAP/M2 by mouth daily. [facility] TRAZODONE 50 MG ORAL TAB 2017-05 0 20:05: 28 Yes 1 DAILY [facility] TRAZODONE 50 MG ORAL TAB 2017-05 0 20:05: 28 Yes 1 DAILY [facility] TRAZODONE 50 MG ORAL TAB 2017-05 0 20:05: 28 Yes 1 DAILY [facility] TRAZODONE 50 MG ORAL TAB 2017-05 0 20:05: 28 Yes 1 DAILY [facility] TRAZODONE 50 MG ORAL TAB 2017-05 20:05: 28 Yes 1 DAILY [facility] sitagliptin phosphate (JANUVIA ORAL) 2017-05 20:05: 28 Yes Take 1 TAB-CAP/M2 by mouth daily. [facility] TRAZODONE 50 MG ORAL TAB 2017-05 20:05: 28 Yes 1 DAILY [facility] sitagliptin phosphate (JANUVIA ORAL) 2017-05 20:05: 28 Yes Take 1 TAB-CAP/M2 by mouth daily. [facility] TRAZODONE 50 MG ORAL TAB 2017-05 20:05: 28 Yes 1 DAILY [facility] sitagliptin phosphate (JANUVIA ORAL) 2017-05 20:05: 28 Yes Take 1 TAB-CAP/M2 by mouth daily. [facility] TRAZODONE 50 MG ORAL TAB 2017-05 20:05: 28 Yes 1 DAILY [facility] metoprolol succinate XL 25 mg 24 hr tablet 2017-05 00:00: 00 Yes [facility] triamterene -hydrochlor othiazide 37.5-25 mg per capsule 2017-05 00:00: 00 Yes [facility] metoprolol succinate XL 25 mg 24 hr tablet 2017-05 00:00: 00 Yes [facility] triamterene -hydrochlor othiazide 37.5-25 mg per capsule 2017-05 00:00: 00 Yes [facility] metoprolol succinate XL 25 mg 24 hr tablet 2017-05 00:00: 00 Yes [facility] triamterene -hydrochlor othiazide 37.5-25 mg per capsule 2017-05 00:00: 00 Yes [facility] metoprolol succinate XL 25 mg 24 hr tablet 2017-05 00:00: 00 Yes [facility] triamterene -hydrochlor othiazide 37.5-25 mg per capsule 2017-05 00:00: 00 Yes [facility] metoprolol succinate XL 25 mg 24 hr tablet 2017-05 00:00: 00 Yes [facility] triamterene -hydrochlor othiazide 37.5-25 mg per capsule 2017-05 00:00: 00 Yes [facility] metoprolol succinate XL 25 mg 24 hr tablet 2017-05 00:00: 00 Yes [facility] triamterene -hydrochlor othiazide 37.5-25 mg per capsule 2017-05 00:00: 00 Yes [facility] metoprolol succinate XL 25 mg 24 hr tablet 2017-05 00:00: 00 Yes [facility] triamterene -hydrochlor othiazide 37.5-25 mg per capsule 2017-05 00:00: 00 Yes [facility] metoprolol succinate XL 25 mg 24 hr tablet 2017-05 00:00: 00 Yes [facility] triamterene -hydrochlor othiazide 37.5-25 mg per capsule 2017-05 00:00: 00 Yes [facility] metoprolol succinate XL 25 mg 24 hr tablet 2017-05 00:00: 00 Yes [facility] triamterene -hydrochlor othiazide 37.5-25 mg per capsule 2017-05 00:00: 00 Yes [facility] metoprolol succinate XL 25 mg 24 hr tablet 2017-05 00:00: 00 Yes [facility] triamterene -hydrochlor othiazide 37.5-25 mg per capsule 2017-05 00:00: 00 Yes [facility] metoprolol succinate XL 25 mg 24 hr tablet 2017-05 00:00: 00 Yes [facility] triamterene -hydrochlor othiazide 37.5-25 mg per capsule 2017-05 00:00: 00 Yes [facility] metoprolol succinate XL 25 mg 24 hr tablet 2017-05 00:00: 00 Yes [facility] triamterene -hydrochlor othiazide 37.5-25 mg per capsule 2017-05 00:00: 00 Yes [facility] metoprolol succinate XL 25 mg 24 hr tablet 2017-05 00:00: 00 Yes [facility] metoprolol succinate XL 25 mg 24 hr tablet 2017-05 00:00: 00 Yes [facility] triamterene -hydrochlor othiazide 37.5-25 mg per capsule 2017-05 00:00: 00 Yes [facility] triamterene -hydrochlor othiazide 37.5-25 mg per capsule 2017-05 00:00: 00 Yes [facility] metoprolol succinate XL 25 mg 24 hr tablet 2017-05 00:00: 00 Yes [facility] triamterene -hydrochlor othiazide 37.5-25 mg per capsule 2017-05 00:00: 00 Yes [facility] metoprolol succinate XL 25 mg 24 hr tablet 2017-05 00:00: 00 Yes [facility] triamterene -hydrochlor othiazide 37.5-25 mg per capsule 2017-05 00:00: 00 Yes [facility] metoprolol succinate XL 25 mg 24 hr tablet 2017-05 00:00: 00 Yes [facility] triamterene -hydrochlor othiazide 37.5-25 mg per capsule 2017-05 00:00: 00 Yes [facility] metoprolol succinate XL 25 mg 24 hr tablet 2017-05 00:00: 00 Yes [facility] triamterene -hydrochlor othiazide 37.5-25 mg per capsule 2017-05 00:00: 00 Yes [facility] metoprolol succinate XL 25 mg 24 hr tablet 2017-05 00:00: 00 Yes [facility] triamterene -hydrochlor othiazide 37.5-25 mg per capsule 2017-05 00:00: 00 Yes [facility] metoprolol succinate XL 25 mg 24 hr tablet 2017-05 00:00: 00 Yes [facility] triamterene -hydrochlor othiazide 37.5-25 mg per capsule 2017-05 009 00:00: 00 Yes [facility] metformin ER 500 mg 24 hr tablet 2017-05 008 00:00: 00 Yes [facility] tiZANidine 2 mg tablet 2017-05 008 00:00: 00 Yes [facility] topiramate 50 mg tablet 2017-05 008 00:00: 00 Yes [facility] buPROPion XL 300 mg 24 hr tablet 2017-05 008 00:00: 00 Yes [facility] escitalopra m oxalate 20 mg tablet 2017-05 0 00:00: 00 Yes [facility] metformin ER 500 mg 24 hr tablet 2017-05 0 00:00: 00 Yes [facility] tiZANidine 2 mg tablet 2017-05 0 00:00: 00 Yes [facility] topiramate 50 mg tablet 2017-05 0 00:00: 00 Yes [facility] buPROPion XL 300 mg 24 hr tablet 2017-05 008 00:00: 00 Yes [facility] escitalopra m oxalate 20 mg tablet 2017-05 0 00:00: 00 Yes [facility] metformin ER 500 mg 24 hr tablet 2017-05 0 00:00: 00 Yes [facility] tiZANidine 2 mg tablet 2017-05 0 00:00: 00 Yes [facility] topiramate 50 mg tablet 2017-05 0 00:00: 00 Yes [facility] buPROPion XL 300 mg 24 hr tablet 2017-05 008 00:00: 00 Yes [facility] escitalopra m oxalate 20 mg tablet 2017-05 008 00:00: 00 Yes [facility] metformin ER 500 mg 24 hr tablet 2017-05 008 00:00: 00 Yes [facility] tiZANidine 2 mg tablet 2017-05 008 00:00: 00 Yes [facility] topiramate 50 mg tablet 2017-05 008 00:00: 00 Yes [facility] buPROPion XL 300 mg 24 hr tablet 2017-05 008 00:00: 00 Yes [facility] escitalopra m oxalate 20 mg tablet 2017-05 008 00:00: 00 Yes [facility] metformin ER 500 mg 24 hr tablet 2017-05 008 00:00: 00 Yes [facility] tiZANidine 2 mg tablet 2017-05 008 00:00: 00 Yes [facility] topiramate 50 mg tablet 2017-05 008 00:00: 00 Yes [facility] buPROPion XL 300 mg 24 hr tablet 2017-05 0 00:00: 00 Yes [facility] escitalopra m oxalate 20 mg tablet 2017-05 008 00:00: 00 Yes [facility] metformin ER 500 mg 24 hr tablet 2017-05 008 00:00: 00 Yes [facility] tiZANidine 2 mg tablet 2017-05 008 00:00: 00 Yes [facility] topiramate 50 mg tablet 2017-05 008 00:00: 00 Yes [facility] buPROPion XL 300 mg 24 hr tablet 2017-05 008 00:00: 00 Yes [facility] escitalopra m oxalate 20 mg tablet 2017-05 008 00:00: 00 Yes [facility] metformin ER 500 mg 24 hr tablet 2017-05 008 00:00: 00 Yes [facility] tiZANidine 2 mg tablet 2017-05 008 00:00: 00 Yes [facility] topiramate 50 mg tablet 2017-05 008 00:00: 00 Yes [facility] buPROPion XL 300 mg 24 hr tablet 2017-05 008 00:00: 00 Yes [facility] escitalopra m oxalate 20 mg tablet 2017-05 008 00:00: 00 Yes [facility] metformin ER 500 mg 24 hr tablet 2017-05 008 00:00: 00 Yes [facility] tiZANidine 2 mg tablet 2017-05 008 00:00: 00 Yes [facility] buPROPion XL 300 mg 24 hr tablet 2017-05 008 00:00: 00 Yes [facility] escitalopra m oxalate 20 mg tablet 2017-05 008 00:00: 00 Yes [facility] metformin ER 500 mg 24 hr tablet 2017-05 008 00:00: 00 Yes [facility] tiZANidine 2 mg tablet 2017-05 008 00:00: 00 Yes [facility] buPROPion XL 300 mg 24 hr tablet 2017-05 008 00:00: 00 Yes [facility] escitalopra m oxalate 20 mg tablet 2017-05 0 00:00: 00 Yes [facility] metformin ER 500 mg 24 hr tablet 2017-05 008 00:00: 00 Yes [facility] tiZANidine 2 mg tablet 2017-05 0 00:00: 00 Yes [facility] buPROPion XL 300 mg 24 hr tablet 2017-05 0 00:00: 00 Yes [facility] buPROPion XL 300 mg 24 hr tablet 2017-05 008 00:00: 00 Yes [facility] escitalopra m oxalate 20 mg tablet 2017-05 0 00:00: 00 Yes [facility] [place] metformin ER 500 mg 24 hr tablet 2017-05 008 00:00: 00 Yes [facility] tiZANidine 2 mg tablet 2017-05 008 00:00: 00 Yes [facility] escitalopra m oxalate 20 mg tablet 2017-05 008 00:00: 00 Yes [facility] buPROPion XL 300 mg 24 hr tablet 2017-05 008 00:00: 00 Yes [facility] escitalopra m oxalate 20 mg tablet 2017-05 008 00:00: 00 Yes [facility] metformin ER 500 mg 24 hr tablet 2017-05 008 00:00: 00 Yes [facility] metformin ER 500 mg 24 hr tablet 2017-05 008 00:00: 00 Yes [facility] tiZANidine 2 mg tablet 2017-05 008 00:00: 00 Yes [facility] buPROPion XL 300 mg 24 hr tablet 2017-05 008 00:00: 00 Yes [facility] escitalopra m oxalate 20 mg tablet 2017-05 008 00:00: 00 Yes [facility] metformin ER 500 mg 24 hr tablet 2017-05 008 00:00: 00 Yes [facility] tiZANidine 2 mg tablet 2017-05 008 00:00: 00 Yes [facility] tiZANidine 2 mg tablet 2017-05 0 00:00: 00 Yes [facility] buPROPion XL 300 mg 24 hr tablet 2017-05 0 00:00: 00 Yes [facility] escitalopra m oxalate 20 mg tablet 2017-05 0 00:00: 00 Yes [facility] metformin ER 500 mg 24 hr tablet 2017-05 0 00:00: 00 Yes [facility] tiZANidine 2 mg tablet 2017-05 008 00:00: 00 Yes [facility] buPROPion XL 300 mg 24 hr tablet 2017-05 0 00:00: 00 Yes [facility] escitalopra m oxalate 20 mg tablet 2017-05 008 00:00: 00 Yes [facility] metformin ER 500 mg 24 hr tablet 2017-05 008 00:00: 00 Yes [facility] tiZANidine 2 mg tablet 2017-05 008 00:00: 00 Yes [facility] buPROPion XL 300 mg 24 hr tablet 2017-05 008 00:00: 00 Yes [facility] escitalopra m oxalate 20 mg tablet 2017-05 008 00:00: 00 Yes [facility] metformin ER 500 mg 24 hr tablet 2017-05 008 00:00: 00 Yes [facility] tiZANidine 2 mg tablet 2017-05 008 00:00: 00 Yes [facility] buPROPion XL 300 mg 24 hr tablet 2017-05 008 00:00: 00 Yes [facility] escitalopra m oxalate 20 mg tablet 2017-05 008 00:00: 00 Yes [facility] metformin ER 500 mg 24 hr tablet 2017-05 008 00:00: 00 Yes [facility] tiZANidine 2 mg tablet 2017-05 008 00:00: 00 Yes [facility] topiramate 50 mg tablet 2017-05 008 00:00: 00 Yes [facility] buPROPion XL 300 mg 24 hr tablet 2017-05 008 00:00: 00 Yes [facility] escitalopra m oxalate 20 mg tablet 2017-05 0 00:00: 00 Yes [facility] metformin ER 500 mg 24 hr tablet 2017-05 0 00:00: 00 Yes [facility] tiZANidine 2 mg tablet 2017-05 008 00:00: 00 Yes [facility] topiramate 50 mg tablet 2017-05 008 00:00: 00 Yes [facility] buPROPion XL 300 mg 24 hr tablet 2017-05 008 00:00: 00 Yes [facility] escitalopra m oxalate 20 mg tablet 2017-05 0 00:00: 00 Yes [facility] metformin ER 500 mg 24 hr tablet 2017-05 008 00:00: 00 Yes [facility] tiZANidine 2 mg tablet 2017-05 008 00:00: 00 Yes [facility] topiramate 50 mg tablet 2017-05 008 00:00: 00 Yes [facility] buPROPion XL 300 mg 24 hr tablet 2017-05 008 00:00: 00 Yes [facility] escitalopra m oxalate 20 mg tablet 2017-05 008 00:00: 00 Yes [facility] topiramate 50 mg tablet 2017-05 008 00:00: 00 09-17 00:00 :00 No [facility] topiramate 50 mg tablet 2017-05 008 00:00: 00 2020- 05 00:00 :00 No [facility] [place] [facility] NOVOFINE 32 32 gauge x 1/4" Nd0 02-02 00:00: 00 Yes [facility] SYNTHROID 100 mcg tablet 2017-0 02-02 00:00: 00 Yes [facility] NOVOFINE 32 32 gauge x 1/4" Nd2017-0 02-02 00:00: 00 Yes [facility] [...] 18 00:00: 00 Yes [facility] SYNTHROID 100 mcg tablet 2018-0 18 00:00: 00 Yes [facility] NOVOFINE 32 32 gauge x 1/4" Ndle 2017-0 18 00:00: 00 Yes [facility] SYNTHROID 100 mcg tablet 2018-0 18 00:00: 00 Yes [facility] NOVOFINE 32 32 gauge x 1/4" Ndle 0 18 00:00: 00 Yes [facility] LEVOTHYROXI NE 112 MCG ORAL TAB 2008- 0-30 00:00: 00 Yes [id number] 1 by mouth every day [facility] LEVOTHYROXI NE 112 MCG ORAL TAB 2008- 030 00:00: 00 Yes [id number] 1 by mouth every day [facility] LEVOTHYROXI NE 112 MCG ORAL TAB 2008- 030 00:00: 00 Yes [id number] 1 by mouth every day [facility] LEVOTHYROXI NE 112 MCG ORAL TAB 2008- 030 00:00: 00 Yes [id number] 1 by mouth every day [facility] LEVOTHYROXI NE 112 MCG ORAL TAB 2008- 030 00:00: 00 Yes [id number] 1 by mouth every day [facility] LEVOTHYROXI NE 112 MCG ORAL TAB 2008-1 030 00:00: 00 Yes [id number] 1 by mouth every day [facility] LEVOTHYROXI NE 112 MCG ORAL TAB 2008-1 030 00:00: 00 Yes [id number] 1 by mouth every day [facility] LEVOTHYROXI NE 112 MCG ORAL TAB 2008- 030 00:00: 00 Yes [id number] 1 by mouth every day [facility] LEVOTHYROXI NE 112 MCG ORAL TAB 2008- 030 00:00: 00 Yes [id number] 1 by mouth every day [facility] LEVOTHYROXI NE 112 MCG ORAL TAB 2008- 0-30 00:00: 00 Yes [id number] 1 by mouth every day [facility] LEVOTHYROXI NE 112 MCG ORAL TAB 2009-1 0-30 00:00: 00 Yes [id number] 1 by mouth every day [facility] LEVOTHYROXI NE 112 MCG ORAL TAB 2009-1 0-30 00:00: 00 Yes [id number] 1 by mouth every day [facility] LEVOTHYROXI NE 112 MCG ORAL TAB 2009-1 0-30 00:00: 00 Yes [id number] 1 by mouth every day [facility] LEVOTHYROXI NE 112 MCG ORAL TAB 2009-1 0-30 00:00: 00 Yes [id number] 1 by mouth every day [facility] LEVOTHYROXI NE 112 MCG ORAL TAB 2008-1 0-30 00:00: 00 Yes [id number] 1 by mouth every day [facility] LEVOTHYROXI NE 112 MCG ORAL TAB 2009-1 0-30 00:00: 00 Yes [id number] 1 by mouth every day [facility] LEVOTHYROXI NE 112 MCG ORAL TAB 2009-1 0-30 00:00: 00 Yes [id number] 1 by mouth every day [facility] LEVOTHYROXI NE 112 MCG ORAL TAB 2009-1 0-30 00:00: 00 Yes [id number] 1 by mouth every day [facility] LEVOTHYROXI NE 112 MCG ORAL TAB 2009-1 0-30 00:00: 00 Yes [id number] 1 by mouth every day [facility] LEVOTHYROXI NE 112 MCG ORAL TAB 2008-1 0-30 00:00: 00 Yes [id number] 1 by mouth every day [facility] Vital Signs Vital Name Observation Time Observation Value Comments S ource Systolic blood pressure 2020-09-17 16:16:00 138 mm[Hg] [facility] Diastolic blood pressure 2020-09-17 16:16:00 85 mm[Hg] [facility] Heart rate 2020-09-17 16:16:00 63 /min [facility] Body height 2020-09-17 16:16:00 160 cm [facility] Body weight 2020-09-17 16:16:00 77.565 kg [facility] BMI 2020-09-17 16:16:00 30.29 kg/m2 [facility] saturation in Arterial blood by Pulse oximetry 2020-09-17 16:16:00 97 /min [facility] Systolic blood pressure 2020-02-20 19:51:00 114 mm[Hg] [place] [facility] Diastolic blood pressure 2020-02-20 19:51:00 75 mm[Hg] [place] [facility] Heart rate 2020-02-20 19:51:00 60 [facility] Body height 2020-02-20 19:51:00 160 cm [facility] Body weight 2020-02-20 19:51:00 82.101 kg [facility] BMI 2020-02-20 19:51:00 32.06 kg/m2 [facility] Oxygen saturation in Arterial blood by Pulse oximetry 2020-02-20 19:51:00 95 /min [facility] Procedures Procedure Date / Time Performed Performing Clinicia n Source CBC WITH DIFF 2020-09-17 18:12:00 Tammy Spivey [facility] ASSIGNMENT OF BENEFITS 2020-02-20 19:45:13 Docto r Unassigned, [place] [facility] Encounters Start Date/Time End Date/Time Encounter Type Admission Type Attending [facility] Care Facility Care Department Encounter ID Source 2023-03-17 00:00:00 2023-03-17 00:00:00 Outpatient [id number] diyala_S PRIV PRIV [id number] [facility] 2023-03-16 00:00:00 2023-03-16 00:00:00 Outpatient [id number] diyala_S PRIV PRIV [id number] [facility] 2021-07-22 00:00:00 2021-07-22 00:00:00 RefTammy Mack [facility] 1.2.840.114 350.1.13.10 4.2.7.2.686 [id number] [facility] 2021-01-25 00:00:00 2021-01-25 00:00:00 Refill Tammy Spivey [facility] 1.2.840.114 350.1.13.10 4.2.7.2.686 [id number] [facility] 2020-11-09 00:00:00 2020-11-09 00:00:00 Telephone PatricTammy mcduffie [facility] 1.2.840.114 350.1.13.10 4.2.7.2.686 [id number] [facility] 2020-11-07 00:00:00 2020-11-07 00:00:00 Telephone Tammy Spivey [facility] 1.2.840.114 350.1.13.10 4.2.7.2.686 [id number] [facility] 2020-09-17 13:09:04 2020-09-17 13:24:04 Human Resource Analyst Visit 2, Adc Lab PatricTammy mcduffie [facility] 1.2.840.114 350.1.13.10 4.2.7.2.686 [id number] [facility] 2020-09-17 10:53:30 2020-09-17 11:43:34 Office Visit PatricTammy [facility] 1.2.840.114 350.1.13.10 4.2.7.2.686 [id number] [facility] 2020-09-17 10:40:00 2020-09-17 10:40:00 Outpatient R TAMMY SPIVEY [facility] [id number] [facility] 2020-09-17 00:00:00 2020-09-17 00:00:00 Telephone PatricTammy [facility] 1.2.840.114 350.1.13.10 4.2.7.2.686 [id number] [facility] 2020-09-17 00:00:00 2020-09-17 00:00:00 Nurse Triage Matthew Kaur [facility] 1.2.840.114 350.1.13.10 4.2.7.2.686 [id number] [facility] 2020-07-18 00:00:00 2020-07-18 00:00:00 Refill Tammy Spivey [facility] 1.2.840.114 350.1.13.10 4.2.7.2.686 [id number] [facility] 2020-03-07 00:00:00 2020-03-07 00:00:00 Telephone Tammy Spivey [facility] 1.2.840.114 350.1.13.10 4.2.7.2.686 [id number] [facility] 2020-02-20 14:45:57 2020-02-20 15:21:42 Office Visit Tammy Spivey [facility] 1.2.840.114 350.1.13.10 4.2.7.2.686 [id number] [facility] 2020-02-20 14:40:00 2020-02-20 14:40:00 Outpatient R TAMMY SPIVEY [facility] [id number] [facility] 2020-02-20 00:00:00 2020-02-20 00:00:00 Orders Only Doctor Unassigned, [place] [facility] 1.2.840.114 350.1.13.10 4.2.7.2.686 [id number] [facility] 2020-01-30 00:00:00 2020-01-30 00:00:00 RefTammy Mack [facility] 1.2.840.114 350.1.13.10 4.2.7.2.686 [id number] [facility] 2020-01-23 00:00:00 2020-01-23 00:00:00 RefTammy Mack [facility] 1.2.840.114 350.1.13.10 4.2.7.2.686 [id number] [facility] 2019-12-12 00:00:00 2019-12-12 00:00:00 Tammy Kitchen [facility] 1.2.840.114 350.1.13.10 4.2.7.2.686 [id number] [facility] 2019-10-24 00:00:00 2019-10-24 00:00:00 Telephone Tammy Spivey [facility] 1.2.840.114 350.1.13.10 4.2.7.2.686 [id number] 2019-10-24 00:00:00 2019-10-24 00:00:00 Telephone Tammy Spivey [facility] 1.2.840.114 350.1.13.10 4.2.7.2.686 [id number] [facility] 2019-06-08 00:00:00 2019-06-08 00:00:00 Tammy Kitchen [facility] 1.2.840.114 350.1.13.10 4.2.7.2.686 [id number] 2019-06-08 00:00:00 2019-06-08 00:00:00 Tammy Kitchen [facility] 1.2.840.114 350.1.13.10 4.2.7.2.686 [id number] [facility] Results Test Description Test Time Test Comments Results Result Co mments Source [facility] WITH [id number] 22:34:57* Test Item Value Reference Range Interpretation [...] 32.4 g/dL 31.6-35.1 RDW-SD (test code = 39576-9) 51.8 fL 39.0-49.9 H RDW-CV (test code = 788-0) 12.5 % 12.0-15.5 PLT (test code = 777-3) See_Comment [Automated messa ge] The system which generated this result transmitted reference range: 166 - 358 10*3/?L. The reference range was not used to interpret this result as normal/abnormal. MPV (test code = 84243-6) 11.4 fL 9.5-12.9 NRBC/100 WBC (test code = 1981598463) See_Comment [Automated me ssage] The system which generated this result transmitted reference range: 0.0 - 10.0 /100 WBCs. The reference range was not used to interpret this result as normal/abnormal. NRBC x10^3 (test code = 5482574311) <0.01 See_Comment [Automated messa ge] The system which generated this result transmitted reference range: 10*3/?L. The reference range was not used to interpret this result as normal/abnormal. GRAN MAT (NEUT) % (test code = 770-8) 61.5 % IMM GRAN % (test code = 4214759536) 0.40 % LYMPH % (test code = 736-9) 29.0 % MONO % (test code = 5905-5) 6.7 % EOS % (test code = 713-8) 2.0 % BASO % (test code = 706-2) 0.4 % GRAN MAT x10^3(ANC) (test code = 5153993166) 3.15 10*3/uL 1.88-7.09 IMM GRAN x10^3 (test code = 7855832117) <0.03 0.00-0.06 LYMPH x10^3 (test code = 731-0) 1.48 10*3/uL 1.32-3.29 MONO x10^3 (test code = 742-7) 0.34 10*3/uL 0.33-0.92 EOS x10^3 (test code = 711-2) 0.10 10*3/uL 0.03-0.39 BASO x10^3 (test code = 704-7) <0.03 0.01-0.07 Lab Interpretation (test code = 91064-5) Abnormal [facility]
[2023-08-06 11:52] LABS: Absolute Lymphocytes (CBC) 0.5 K/uL (0.7-4.9); Absolute Monocytes 0.6 K/uL (0.1-1.3); Absolute Neutrophil 7.1 K/uL (1.8-8.0); Basophils % 0.5 % (0-1.3); Eosinophils % 0.2 % (0-4.4); Hematocrit 44.3 % (36.0-45.0); Hemoglobin 14.9 g/dL (12.0-15.0); MCH 32.3 pg (27.0-35.0); MCHC 33.5 g/dL (32.0-36.0); MCV 96.2 fL (80-100); MPV 10.7 fL (7.6-11.3); Monocytes % 7.6 % (3.3-12.3); Neutrophils % 85.7 % (41.7-73.7); Platelets 182 thou/uL (152-406); RBC Red Blood Cell Count 4.61 M/uL (3.86-4.86); Red Cell Distribution Width 14.8 % (12.1-15.2)
[2023-08-06 12:07] LABS: Albumin 3.8 g/dL (3.4-5.0); Anion Gap 7.5 mEq/L (5.0-15.0); Bilirubin Total 0.6 mg/dL (0.2-1.0); Potassium 3.5 mEq/L (3.5-5.1); Protein, Total 7.8 g/dL (6.4-8.2)
--- NOTE | 2023-08-06 13:03 | RAD REPORT ---
EXAM DESCRIPTION: CT - Abdomen Pelvis W Contrast - 08/06/2023 12:44 pm CLINICAL HISTORY: Abdominal pain/constipation COMPARISON: [address] abdomen TECHNIQUE: Computed axial tomography of the abdomen and pelvis was obtained. 100 cc Isovue-300 is ad ministered intravenously. Oral contrast was given. All CT scans are performed using dose optimization technique as appropriate and may include automated exposure control or mA/KV adjustment according to patient size. FINDINGS: Bilateral adrenal masses unchanged from 2017 likely benign representing adenomas. No follow-up recomm ended Liver, spleen, and pancreas unremarkable. Tiny right renal cysts. Left kidney has a decreased in size since 2019. It contains a small cysts and small nonobstructing ca lculi. Normal appendix. No adnexal mass The rectum is distended with stool measuring 6.5 centimeters. Moderate amount of stool throughout col on. No evidence diverticulitis IMPRESSION: Rectum is distended with stool Left kidney has decreased in size since 2019 perhaps secondary to ischemia. Nonobstructing left renal calculi
[2023-08-06 13:19] LABS: Blood Morphology Comment NOT SEEN (NOT SEEN); Platelet Estimate ADEQ; White Blood Cell Scan OK (OK)
--- NOTE | 2023-08-06 14:37 | ER ---
Nurse's Notes [facility] Name: Reta Sutherland Age: 63 yrs Sex: Female : 1960 Arrival Date: 08/06/2023 Time: 10:46 Bed DX4 Private MD: Diagnosis: Constipation-RECTAL IMPACTION Presentation: 08/05 11:10 Chief complaint: Patient states: "I had a stroke in 03/09 and haven't had a normal BM mb9 since then. My poop comes out in patties and my rectum hurts.". Coronavirus screen: Vaccine status: Patient reports being unvaccinated. Ebola Screen: No symptoms or risks identified at this time. Initial Sepsis Screen: Does the patient meet any 2 criteria? No. Patient's initial sepsis screen is negative. Does the patient have a suspected source of infection? No. Patient's initial sepsis screen is negative. Risk Assessment: Do you want to hurt yourself or someone else? Patient reports no desire to harm self or others. Onset of symptoms was August 06, 2023. 11:10 Method Of Arrival: Ambulatory mb9 11:10 Acuity: DEION 3 mb9 Historical: - Allergies: 11:11 PENICILLINS; mb9 - PMHx: 11:11 Cerebrovascular accident; Diabetes - IDDM; Hypertension; Hypothyroidism; Osteoporosis; mb9 - Immunization history:: Adult Immunizations up to date. - Social history:: Smoking status: Patient denies any tobacco usage or history of. Screenin:[address] [facility] ED Fall Risk Assessment (Adult) History of falling in the last 3 months, me1 including since admission No falls in past 3 months (0 pts) Confusion or Disorientation No (0 pts) Intoxicated or Sedated No (0 pts) Impaired Gait No (0 pts) Mobility Assist Device Used No (0 pt) Altered Elimination No (0 pt) Score/Fall Risk Level 0 - 2 = Low Risk Maintained a safe environment, Provided non-skid footwear, Hourly rounding (assess needs \\T\\ fall precautionary measures) done. Abuse screen: Denies threats or abuse. Nutritional screening: No deficits noted. Tuberculosis screening: No symptoms or risk factors identified. Assessment: 12:16 General: Appears uncomfortable, well groomed, well developed, well nourished, Behavior me1 is calm, cooperative, appropriate for age, Reports "I had a stroke in 03/09 and haven't had a normal BM since then. My poop comes out in patties and my rectum hurts.". Pain: Complains of pain in rectum Pain does not radiate. Pain currently is 4 out of 10 on a pain scale. Quality of pain is described as pressure, Pain began gradually, since February of last year. Is continuous. Neuro: Level of Consciousness is awake, alert, obeys commands, Oriented to person, place, time, situation, Appropriate for age. Cardiovascular: Capillary refill < 3 seconds Patient's skin is warm and dry. Respiratory: Airway is patent Trachea midline Respiratory effort is even, unlabored, Respiratory pattern is regular, symmetrical. GI: Abdomen is round Bowel sounds present X 4 quads. Abd is soft X 4 quads. Derm: Skin is intact, is healthy with good turgor, Skin is pink, warm \\T\\ dry. 15:30 Reassessment: Pt assisted to restroom via wheelchair prior to d/c home, pt voided and aa5 had moderate soft stool. . 15:40 Reassessment: Patient is alert, oriented x 3, equal unlabored respirations, skin aa5 warm/dry/pink. Vital Signs: 11:10 BP 132 / 83; Pulse 108; Resp 18; Temp 98.6; Pulse Ox 100% ; Weight 62.6 kg; Height 5 mb9 ft. 2 in. ; 12:00 BP 113 / 81; Pulse 78; Resp 16; Pulse Ox 95% on R/A; me1 13:20 BP 143 / 80; Pulse 92; Resp 18; Pulse Ox 97% on R/A; me1 15:30 BP 133 / 80; Pulse 73; Resp 16 S; Pulse Ox 98% on R/A; aa5 11:10 Body Mass Index 25.24 (62.60 kg, 157.48 cm) mb9 ED Course: 10:49 Patient arrived in ED. mg5 10:51 Matthew Pineda MD is Attending Physician. rosanna 11:10 Arm band placed on. mb9 11:11 Triage completed. mb9 11:38 Initial lab(s) drawn, by ct, sent to lab. Inserted saline lock: 22 gauge in right iw wrist, using aseptic technique. Blood collected. 12:15 Odessa Gaspar, RN is Primary Nurse. me1 12:16 Patient has correct armband on for positive identification. Bed in low position. Call me1 light in reach. Side rails up X2. Provided Education on: POC. Verbalized understanding. . 12:16 No provider procedures requiring assistance completed. me1 12:45 CT Abd/Pelvis - PO and IV Contrast In Process Unspecified. EDMS 14:36 Jorge Mcghee MD is Referral Physician. rosanna 15:40 IV discontinued, intact, bleeding controlled, No redness/swelling at site. Pressure aa5 dressing applied. Administered Medications: 12:15 Drug: NS 0.9% IV 1000 ml IV at 1 bolus Per protocol; 1000 mL bolus Route: IV; Rate: 1 me1 bolus; Site: right wrist; 13:52 Follow up: IV Status: Completed infusion; IV Intake: 1000ml me1 12:15 Drug: Ondansetron IVP 4 mg IVP once; over 2 minutes Route: IVP; Site: right wrist; me1 13:52 Follow up: Response: No adverse reaction me1 12:15 Drug: Lactulose PO 30 grams 45 ml PO once Volume: 45 ml; Route: PO; me1 13:52 Follow up: Response: No adverse reaction me1 12:15 Drug: Dulcolax DC Suppository 10 mg DC once Route: DC; me1 13:52 Follow up: Response: No adverse reaction me1 14:37 Drug: Lactulose PO 30 grams 45 ml PO once Volume: 45 ml; Route: PO; me1 16:47 Follow up: Response: No adverse reaction me1 Medication: 12:16 VIS not applicable for this client. me1 Intake: 13:52 IV: 1000ml; Total: 1000ml. me1 13:20 very large amount of stool. Some formed and some loose. Patient verbalized relief. Dr kayode Pineda aware. Output: 13:20 Stool: 1ml (Loose Stool); Total: 1ml. me1 13:20 very large amount of stool. Some formed and some loose. Patient verbalized relief. Dr kayode Pineda aware. Outcome: 14:36 Discharge ordered by . rosanna 15:40 Discharged to home via wheelchair, with friend, aa5 15:40 Condition: improved 15:40 Discharge instructions given to patient, Instructed on discharge instructions, follow up and referral plans. medication usage, Demonstrated understanding of instructions, follow-up care, medications, Prescriptions given X 2, 15:47 Patient left the ED. aa5 Signatures: Dispatcher [employer] EDMatthew Trujillo MD MD cha Williams, Irene, Salina Leahy RN, RN RN aa5 Becky Villar RN RN mb9 Odessa Gaspar RN RN me1 Heidy Sanchez mg5 Corrections: (The following items were deleted from the chart) 12:16 11:10 Chief complaint: Patient states: "I had a stroke in 03/09 and haven't had a me1 normal BM since then. My poop comes out in patties and my rectum hurts." mb9
--- NOTE | 2023-08-06 14:37 | EDPHYS ---
Physician Documentation [facility] Name: Reta Sutherland Age: 63 yrs Sex: Female : 1960 Arrival Date: 08/06/2023 Time: 10:46 Bed DX4 Private MD: ED Physician Matthew Pineda HPI: 08/05 14:29 This 63 yrs old Female presents to ER via Ambulatory with complaints of rosanna Rectal Pain, Constipation. 14:29 The patient presents to the emergency department with pain in the rectal area, that is rosanna moderate. Onset: The symptoms/episode began/occurred 2 day(s) ago. Context: the patient has no known special context relating to the rectal area complaint(s). Modifying factors: The symptoms are alleviated by remaining still, The symptoms are aggravated by no bm's. Associate signs and symptoms: The patient has no apparent associated signs or symptoms. The patient has experienced similar episodes in the past, a few times. Historical: - Allergies: 11:11 PENICILLINS; mb9 - PMHx: 11:11 Cerebrovascular accident; Diabetes - IDDM; Hypertension; Hypothyroidism; Osteoporosis; mb9 - Immunization history:: Adult Immunizations up to date. - Social history:: Smoking status: Patient denies any tobacco usage or history of. ROS: 14:30 Constitutional: Negative for fever, chills, and weight loss, Eyes: Negative for injury, rosanna pain, redness, and discharge, ENT: Negative for injury, pain, and discharge, Neck: Negative for injury, pain, and swelling, Cardiovascular: Negative for chest pain, palpitations, and edema, Respiratory: Negative for shortness of breath, cough, wheezing, and pleuritic chest pain, Back: Negative for injury and pain, : Negative for injury, bleeding, discharge, and swelling, MS/Extremity: Negative for injury and deformity, Skin: Negative for injury, rash, and discoloration, Neuro: Negative for headache, weakness, numbness, tingling, and seizure, Psych: Negative for depression, anxiety, suicide ideation, homicidal ideation, and hallucinations, Allergy/Immunology: Negative for hives, rash, and allergies, Endocrine: Negative for neck swelling, polydipsia, polyuria, polyphagia, and marked weight changes, Hematologic/Lymphatic: Negative for swollen nodes, abnormal bleeding, and unusual bruising, 14:30 Abdomen/GI: Positive for constipation, abdominal cramps, rectal pain, Exam: 14:30 Constitutional: This is a well developed, well nourished patient who is awake, alert, rosanna and in no acute distress. Head/Face: Normocephalic, atraumatic. Eyes: Pupils equal round and reactive to light, extra-ocular motions intact. Lids and lashes normal. Conjunctiva and sclera are non-icteric and not injected. Cornea within normal limits. Periorbital areas with no swelling, redness, or edema. ENT: Nares patent. No nasal discharge, no septal abnormalities noted. Tympanic membranes are normal and external auditory canals are clear. Oropharynx with no redness, swelling, or masses, exudates, or evidence of obstruction, uvula midline. Mucous membranes moist. Neck: Trachea midline, no thyromegaly or masses palpated, and no cervical lymphadenopathy. Supple, full range of motion without nuchal rigidity, or vertebral point tenderness. No Meningismus. Chest/axilla: Normal chest wall appearance and motion. Nontender with no deformity. No lesions are appreciated. Cardiovascular: Regular rate and rhythm with a normal S1 and S2. No gallops, murmurs, or rubs. Normal PMI, no JVD. No pulse deficits. Respiratory: Lungs have equal breath sounds bilaterally, clear to auscultation and percussion. No rales, rhonchi or wheezes noted. No increased work of breathing, no retractions or nasal flaring. Abdomen/GI: Soft, non-tender, with normal bowel sounds. No distension or tympany. No guarding or rebound. No evidence of tenderness throughout. Back: No spinal tenderness. No costovertebral tenderness. Full range of motion. Female : Normal external genitalia. Skin: Warm, dry with normal turgor. Normal color with no rashes, no lesions, and no evidence of cellulitis. MS/ Extremity: Pulses equal, no cyanosis. Neurovascular intact. Full, normal range of motion. Neuro: Awake and alert, GCS 15, oriented to person, place, time, and situation. Cranial nerves II-XII grossly intact. Motor strength 5/5 in all extremities. Sensory grossly intact. Cerebellar exam normal. Normal gait. Psych: Awake, alert, with orientation to person, place and time. Behavior, mood, and affect are within normal limits. Vital Signs: 11:10 BP 132 / 83; Pulse 108; Resp 18; Temp 98.6; Pulse Ox 100% ; Weight 62.6 kg; Height 5 mb9 ft. 2 in. ; 12:00 BP 113 / 81; Pulse 78; Resp 16; Pulse Ox 95% on R/A; me1 13:20 BP 143 / 80; Pulse 92; Resp 18; Pulse Ox 97% on R/A; me1 15:30 BP 133 / 80; Pulse 73; Resp 16 S; Pulse Ox 98% on R/A; aa5 11:10 Body Mass Index 25.24 (62.60 kg, 157.48 cm) mb9 MDM: 10:51 Patient medically screened. rosanna 14:33 Differential diagnosis: hemorrhoids, fissure, bowel obstruction, diverticulitis, GI rosanna Bleed, non-specific abd pain, urinary tract infection. Data reviewed: vital signs, nurses notes, lab test result(s), EKG. Consideration of Admission/Observation Escalation of care including admission/observation considered. I considered the following discharge prescriptions or medication management in the emergency department Medications were administered in the Emergency Department. See MAR. Independent interpretation of the following test(s) in the Emergency Department CT Scan: My interpretation is ct abdominal / pelvis. Test considered but Not performed: Ultrasound no abd usg. Historians other than the Patient: pt well informed. Care significantly affected by the following chronic conditions: Diabetes, Hypertension, Obesity, cva. 08/05 10:52 Order name: CBC with Diff; Complete Time: 14:24 rosanna 08/05 10:52 Order name: CMP; Complete Time: 14:24 rosanna 08/05 10:52 Order name: Lipase; Complete Time: 14:24 rosanna 08/05 11:57 Order name: CBC Smear Scan; Complete Time: 14:24 EDMS 08/05 10:52 Order name: CT Abd/Pelvis - PO and IV Contrast; Complete Time: 14:24 rosanna 08/05 10:52 Order name: IV Saline Lock; Complete Time: 11:38 rosanna 08/05 10:52 Order name: Labs collected and sent; Complete Time: 11:38 rosanna Administered Medications: 12:15 Drug: NS 0.9% IV 1000 ml IV at 1 bolus Per protocol; 1000 mL bolus Route: IV; Rate: 1 me1 bolus; Site: right wrist; 13:52 Follow up: IV Status: Completed infusion; IV Intake: 1000ml me1 12:15 Drug: Ondansetron IVP 4 mg IVP once; over 2 minutes Route: IVP; Site: right wrist; me1 13:52 Follow up: Response: No adverse reaction me1 12:15 Drug: Lactulose PO 30 grams 45 ml PO once Volume: 45 ml; Route: PO; me1 13:52 Follow up: Response: No adverse reaction me1 12:15 Drug: Dulcolax AL Suppository 10 mg AL once Route: AL; me1 13:52 Follow up: Response: No adverse reaction me1 14:37 Drug: Lactulose PO 30 grams 45 ml PO once Volume: 45 ml; Route: PO; me1 16:47 Follow up: Response: No adverse reaction me1 Disposition Summary: 08/06/23 14:36 Discharge Ordered Notes: Location: Home rosanna Problem: new rosnana Symptoms: have improved rosanna Condition: Stable rosanna Diagnosis - Constipation - RECTAL IMPACTION rosanna Followup: rosanna - With: Private Physician - When: 2 - 3 days - Reason: Recheck today's complaints, Continuance of care, Re-evaluation by your physician Followup: rosanna - With: Jorge Mcghee MD - When: 2 - 3 days - Reason: Recheck today's complaints, Continuance of care, Re-evaluation by your physician Discharge Instructions: - Discharge Summary Sheet rosanna - Constipation, Adult rosanna - Constipation, Adult, [id number] [facility] - Chronic Constipation [facility] Forms: - Medication Reconciliation Form [facility] - Thank You Letter [facility] - Antibiotic Education [facility] - Prescription Opioid Use rosanna - Patient Portal Instructions [facility] - Leadership Thank You Letter [facility] Prescriptions: - Dulcolax (bisacodyl) 10 mg Rectal suppository - insert 1 suppository RECTAL route every 12 hours for 5 days; 10 suppository; [facility] Refills: 0, Product Selection Permitted - Lactulose 10 gram/15 mL Oral Solution - take 30 milliliters ORAL route once daily; 300 milliliter; Refills: 0, Product [facility] Selection Permitted Signatures: Dispatcher [employer] Matthew Woodson MD MD cha Breneman, Mary Beth RN RN mb9 Odessa Gaspar RN RN me1
[2023-08-06 16:29] VITALS: BP 113/81; TEMP 98.6; O2SAT 95
== END ==
LOC: ER 10:46
DX: K56.41 Fecal impaction (principal); Z88.0 Allergy status to penicillin
CPT/HCPCS: 96361; 85025; 36415; 83690; 80053; 74177; 96374; 99284; Q9967; J2405; J7030

== ENCOUNTER 2023-09-03 10:45 | Emergency (ER) | payer OTHER ==
--- OUTSIDE RECORDS SUMMARY | 2023-09-03 10:48 | XMS REPORT | Continuity of Care Document ---
Author Name Unknown Address [address] [place] [address] [facility] Address [address] [place] [address] Care Team Providers Care Embedded Processor Name Role Phone JANETT GUZMAN Primary Care Physician UnavailMARIA L Jeffries Attending Clinician Unavailable MARIA L GONCALVES Attending Clinician Unavailable [email or web address] Attending Clinician UnavailTammy Lynch MD Attending Clinician [phone], [facility] Attending Clinician Unavailable TAMMY SPIVEY Attending Clinician Unavail able TAMMY SPIVEY Attending Clinician Unavail able Vincent SANTOS, Matthew Attending Clinician Unavailab pitts Doctor Unassigned, Effie Attending Clinician U navailable [email or web address] Admitting Clinician Saniya hooper Payers Payer Name Policy Type Policy Number Effective Date Expirati on Date Source KASANDRA/JAE [employer] ADV CHOICE PPO [id number] 2023 00:00:00 Problems Condition Name Condition Details Condition Category Status Onset Date Resolution Date Last Treatment Date Treating Clinician Comments Source Hypothyroi dism Hypothyroi dism Disease Active 08-22 00:00: 00 Overview: Formattin g of this note might be different from the original. ICD10 Diagnosis Term Adult Specialist Utility [facility] Chronic depressive personalit y disorder Chronic depressive personalit y disorder Disease Active 08-22 00:00: 00 [facility] Allergies, Adverse Reactions, Alerts Allergy Name Allergy Type Status Severity Reaction(s) Onset Date Inactive Date Treating Clinician Comments Source Penicill ins Propensi ty to adverse reaction s Active Rash 08-22 00:00: 00 [facility] PENICILL INS Drug Class Active Rash 08-22 00:00: 00 [facility] Social History Social Habit Start Date Stop Date Quantity Comments Source Exposure to SARS-CoV-2 (event) Not sure [facility] History SDOH Alcohol Frequency [facility] History SDOH Alcohol Std Drinks [facility] History SDOH Alcohol Binge [facility] Alcohol intake 2020-09-17 00:00:00 2020-09-17 00:00:00 Current drinker of alcohol (finding) [facility] Tobacco use and exposure 2020-02-20 00:00:00 2020-02-20 00:00:00 Never used [facility] History of tobacco use 2020-02-17 00:00:00 Smoker [facility] Alcohol Comment 2018-03-16 00:00:00 2018-03-16 00:00:00 occaisonal [facility] Sex Ass[birth year] At 1960 00:00:00 1960 00:00:00 [facility] Smoking Status Start Date Stop Date Source Former smoker 2020-02-20 00:00:00 2020-02-20 00:00:00 [facility] Current every day smoker 2018-05-25 00:00:00 [facility] Medications Ordered Medication Name Filled Medication Name Start Date Stop Date Current Medication? Ordering Clinician Indication Dosage Frequency Signature (SIG) Comments Components Source TRAZODONE 50 mg tablet 07-22 00:00: 00 Yes [id number] 100mg TAKE 2 TABLETS BY MOUTH AT BEDTIME [facility] TRAZODONE 50 mg tablet 9- 00:00: 00 07-22 00:00 :00 No [id number] 100mg TAKE 2 TABLETS BY MOUTH AT BEDTIME [facility] azaTHIOprin e 50 mg tablet 11-08 00:00: 00 Yes [id number] TAKE 2 TABLETS BY MOUTH TWICE A DAY [facility] TRAZODONE 50 MG ORAL TAB 09-17 16:37: 11 09-17 00:00 :00 No 1 DAILY [facility] topiramate 50 mg tablet 09-17 00:00: 00 Yes 50mg Take 1 tablet by mouth 2 (two) times daily. [facility] pyridostigm ine (MESTINON) 60 mg tablet 09-17 00:00: 00 Yes [id number] 60mg Take 1 tablet by mouth 4 (four) times daily. [facility] traZODone 50 mg tablet 09-17 00:00: 00 01-25 00:00 :00 No [id number] 100mg Take 2 tablets by mouth at bedtime. [facility] azaTHIOprin e 50 mg tablet 09-17 00:00: 00 11-08 00:00 :00 No [id number] TAKE 2 TABLETS BY MOUTH TWICE A DAY [facility] azaTHIOprin e 50 mg tablet 07-18 00:00: 00 09-17 00:00 :00 No [id number] TAKE 2 TABLETS BY MOUTH TWICE A DAY [facility] pyridostigm ine (MESTINON) 60 mg tablet 2019-05 00:00: 00 09-17 00:00 :00 No [id number] 60mg Take 1 tablet by mouth 4 (four) times daily. [facility] azaTHIOprin e 50 mg tablet 2019-05 00:00: 00 07-18 00:00 :00 No [id number] TAKE 2 TABLETS BY MOUTH TWICE A DAY [facility] sitagliptin phosphate (JANUVIA ORAL) 2019-05 0 19:51: 11 Yes Take 1 TAB-CAP/M2 by mouth daily. [facility] sitagliptin phosphate (JANUVIA ORAL) 2019-05 0 14:51: 11 Yes Take 1 TAB-CAP/M2 by mouth daily. [facility] azaTHIOprin e 50 mg tablet 2019-05 0 00:00: 00 03-09 00:00 :00 No [id number] TAKE 2 TABLETS BY MOUTH TWICE A DAY [facility] pyridostigm ine (MESTINON) 60 mg tablet 2019-05 0 00:00: 03-09 00:00 :00 No [id number] 60mg Take 1 tablet by mouth 4 (four) times daily. [facility] azaTHIOprin e 50 mg tablet 12-11 00:00: 02-19 00:00 :00 No TAKE 2 TABLETS BY MOUTH TWICE A DAY [facility] pyridostigm ine (MESTINON) 60 mg tablet 10-23 00:00: 02-19 00:00 :00 No 60mg Take 1 tablet by mouth 4 (four) times daily. [facility] AZATHIOPRIN E 50 mg tablet 06-09 00:00: 12-11 00:00 :00 No TAKE 2 TABLETS BY MOUTH TWICE A DAY [facility] azaTHIOprin e 50 mg tablet 2018-05 00:00: 00 06-09 00:00 :00 No 100mg Take 2 tablets by mouth 2 (two) times daily. [facility] pyridostigm ine 60 mg tablet 01-25 00:00: 10-23 00:00 :00 No TAKE 1 TABLET BY MOUTH 4 TIMES DAILY [facility] sitagliptin phosphate (JANUVIA ORAL) 2017-05 20:05: 28 Yes Take 1 TAB-CAP/M2 by mouth daily. [facility] TRAZODONE 50 MG ORAL TAB 2017-05 20:05: 28 Yes 1 DAILY [facility] metoprolol succinate XL 25 mg 24 hr tablet 2017-05 00:00: 00 Yes [facility] -hydrochlor othiazide 37.5-25 mg per capsule 2017-05 00:00: 00 Yes [facility] ER 500 mg 24 hr tablet 2017-05 00:00: 00 Yes [facility] tiZ[facility] 2 mg tablet 2017-05 00:00: 00 Yes [facility] bu[facility]ion XL 300 mg 24 hr tablet 2017-05 00:00: 00 Yes [facility] ity [facility] escitalopra m oxalate 20 mg tablet 2017-05 00:00: 00 Yes [facility] ity [facility] topiramate 50 mg tablet 2017-05 00:00: 00 09-17 00:00 :00 No [facility] SYNTHROID 100 mcg tablet 02-02 00:00: 00 Yes [facility] NOVOFINE 32 32 gauge x 1/4" Ndle 02-02 00:00: 00 Yes [facility] LEVOTHYROXI NE 112 MCG ORAL TAB 2008-05 00:00: 00 Yes [id number] 1 by mouth every day [facility] Vital Signs Vital Name Observation Time Observation Value Comments S ource Systolic blood pressure 2020-09-17 16:16:00 138 mm[Hg] [facility] Diastolic blood pressure 2020-09-17 16:16:00 85 mm[Hg] [facility] acute hospital Heart rate 2020-09-17 16:16:00 63 /min [facility] Body height 2020-09-17 16:16:00 160 cm [facility] Body weight 2020-09-17 16:16:00 77.565 kg [facility] BMI 2020-09-17 16:16:00 30.29 kg/m2 [facility] Oxygen saturation in Arterial blood by Pulse oximetry 2020-09-17 16:16:00 97 /min [facility] Systolic blood pressure 2020-02-20 19:51:00 114 mm[Hg] [facility] acute hospital Diastolic blood pressure 2020-02-20 19:51:00 75 mm[Hg] [facility] acute hospital Heart rate 2020-02-20 19:51:00 60 /min [facility] Body height 2020-02-20 19:51:00 160 cm [facility] Body weight 2020-02-20 19:51:00 82.101 kg [facility] BMI 2020-02-20 19:51:00 32.06 kg/m2 [facility] Oxygen saturation in Arterial blood by Pulse oximetry 2020-02-20 19:51:00 95 /min [facility] Procedures Procedure Date / Time Performed Performing Clinicia n Source CBC WITH DIFF 2020-09-17 18:12:00 Tammy Spivey [facility] ASSIGNMENT OF BENEFITS 2020-02-20 19:45:13 Docto r Unassigned, Effie [facility] Encounters Start Date/Time End Date/Time Encounter Type Admission Type Attending [facility] Care Facility Care Department Encounter ID Source 2023-10-07 10:00:00 2023-10-07 10:00:00 Outpatient MARIA L HINOJOSA ELISHA [facility] [id number] [facility] 2023-03-17 00:00:00 2023-03-17 00:00:00 Outpatient GC_[email or web address] diyala_S PRIV PRIV [id number] [facility] 2023-03-16 00:00:00 2023-03-16 00:00:00 Outpatient [email or web address] diyala_S PRIV PRIV [id number] [facility] 2021-07-22 00:00:00 2021-07-22 00:00:00 [facility] 1.2.840.114 350.1.13.10 4.2.7.2.686 [id number] [facility] 2021-01-25 00:00:00 2021-01-25 00:00:00 [facility]ja [facility]ive[facility] [id number] 350.1.13.10 4.2.7.2.686 [id number] [facility] 2020-11-09 00:00:00 2020-11-09 00:00:00 Xavier [facility] 1.2.840.114 350.1.13.10 4.2.7.2.686 [id number] [facility] 2020-11-07 00:00:2020-11-07 00:00:00 Telephone Tammy Spivey [facility] 1.2.840.114 350.1.13.10 4.2.7.2.686 [id number] [facility] 2020-09-17 13:09:04 2020-09-17 13:24:04 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, Adc Lab Tammy Spivey [facility] 1.2.840.114 350.1.13.10 4.2.7.2.686 [id number] [facility] 2020-09-17 10:53:30 2020-09-17 11:43:34 Office Visit Tammy Spivey [facility] 1.2.840.114 350.1.13.10 4.2.7.2.686 [id number] [facility] 2020-09-17 10:40:00 2020-09-17 10:40:00 Outpatient R TAMMY SPIVEY HOW[facility] [id number] [facility] 2020-09-17 00:00:00 2020-09-17 00:00:00 Telephone Tammy Spivey [facility] 1.2.840.114 350.1.13.10 4.2.7.2.686 [id number] [facility] 2020-09-17 00:00:00 2020-09-17 00:00:00 Nurse Triage Vincent Matthew [facility] 1.2.840.114 350.1.13.10 4.2.7.2.686 [id number] [facility] 2020-07-18 00:00:00 2020-07-18 00:00:00 Refill Tammy Spivey [facility] 1.2.840.114 350.1.13.10 4.2.7.2.686 [id number] [facility] 2020-03-07 00:00:00 2020-03-07 00:00:00 Telephone Tam[facility]ive[facility] 1.2.840.114 350.1.13.10 4.2.7.2.686 [id number] [facility] 2020-02-20 14:45:57 2020-02-20 15:21:42 Office Visit Tammy Spivey [facility] 1.84.114 350.1.13.10 4.2.7.2.686 [id number] [facility] 2020-02-20 14:40:00 2020-02-20 14:40:00 Outpatient R TAMMY SPIVEY TAMMY [facility] [id number] [facility] 2020-02-20 00:00:00 2020-02-20 00:00:00 Orders Only Doctor Unassigned, Effie [facility] 1.84.114 350.1.13.10 4.2.7.2.686 [id number] [facility] 2020-01-30 00:00:00 2020-01-30 00:00:00 Refill PatricTammy [facility] 1.84.114 350.1.13.10 4.2.7.2.686 [id number] [facility] 2020-01-23 00:00:00 2020-01-23 00:00:00 Refghada SpiveyTammy [facility] 1.284.114 350.1.13.10 4.2.7.2.686 [id number] [facility] 2019-12-12 00:00:00 2019-12-12 00:00:00 [facility] 1.2.840.114 350.1.13.10 4.2.7.2.686 [id number] [facility] 2019-10-24 00:00:00 2019-10-24 00:00:00 Telephone Tammy Spivey [facility] 1.2.840.114 350.1.13.10 4.2.7.2.686 [id number] 2019-10-24 00:00:00 2019-10-24 00:00:00 Tammy Gamino [facility] 1.2.840.114 350.1.13.10 4.2.7.2.686 [id number] [facility] 2019-06-08 00:00:00 2019-06-08 00:00:00 Tammy Kitchen [facility] 1.2.840.114 350.1.13.10 4.2.7.2.686 [id number] 2019-06-08 00:00:00 2019-06-08 00:00:00 Tammy Kitchen [facility] 1.2.840.114 350.1.13.10 4.2.7.2.686 [id number] [facility] Results Test Description Test Time Test Comments Results Result Co mments Source [facility] WITH [id number] 22:34:57* Test Item Value Reference Range Interpretation [...] 32.4 g/dL 31.6-35.1 RDW-SD (test code = 32820-5) 51.8 fL 39.0-49.9 H RDW-CV (test code = 788-0) 12.5 % 12.0-15.5 PLT (test code = 777-3) See_Comment [Automated messa ge] The system which generated this result transmitted reference range: 166 - 358 10*3/?L. The reference range was not used to interpret this result as normal/abnormal. MPV (test code = 24146-0) 11.4 fL 9.5-12.9 NRBC/100 WBC (test code = 4198374793) See_Comment [Automated [place] ssage] The system which generated this result transmitted reference range: 0.0 - 10.0 /100 WBCs. The reference range was not used to interpret this result as normal/abnormal. NRBC x10^3 (test code = 2905608457) <0.01 See_Comment [Automated messa ge] The system which generated this result transmitted reference range: 10*3/?L. The reference range was not used to interpret this result as normal/abnormal. GRAN MAT (NEUT) % (test code = 770-8) 61.5 % IMM GRAN % (test code = 7253727337) 0.40 % LYMPH % (test code = 736-9) 29.0 % MONO % (test code = 5905-5) 6.7 % EOS % (test code = 713-8) 2.0 % BASO % (test code = 706-2) 0.4 % GRAN MAT x10^3(ANC) (test code = 9503281431) 3.15 10*3/uL 1.88-7.09 IMM GRAN x10^3 (test code = 4660313009) <0.03 0.00-0.06 LYMPH x10^3 (test code = 731-0) 1.48 10*3/uL 1.32-3.29 MONO x10^3 (test code = 742-7) 0.34 10*3/uL 0.33-0.92 EOS x10^3 (test code = 711-2) 0.10 10*3/uL 0.03-0.39 BASO x10^3 (test code = 704-7) <0.03 0.01-0.07 Lab Interpretation (test code = 64724-0) Abnormal [facility]
[2023-09-03 11:32] LABS: Absolute Eosinophils 0.1 K/uL (0-0.5); Absolute Lymphocytes (CBC) 0.6 K/uL (0.7-4.9); Absolute Neutrophil 7.4 K/uL (1.8-8.0); Basophils % 0.2 % (0-1.3); Eosinophils % 0.9 % (0-4.4); Hematocrit 38.7 % (36.0-45.0); Hemoglobin 12.6 g/dL (12.0-15.0); Lymphocytes % 6.2 % (15.3-44.8); MCH 31.5 pg (27.0-35.0); MCHC 32.6 g/dL (32.0-36.0); MCV 96.6 fL (80-100); MPV 10.5 fL (7.6-11.3); Neutrophils % 81.7 % (41.7-73.7); Platelets 147 thou/uL (152-406); RBC Red Blood Cell Count 4.01 M/uL (3.86-4.86); Red Cell Distribution Width 13.8 % (12.1-15.2)
--- NOTE | 2023-09-03 11:39 | RAD REPORT ---
EXAM DESCRIPTION: CT - Ct Stroke Brain Wo Cont - 09/03/2023 11:29 am CLINICAL HISTORY: Ataxia COMPARISON: None TECHNIQUE: Computed axial tomography of the head was obtained. All CT scans are performed using dose optimization technique as appropriate and may include automated exposure control or mA/KV adjustment according to patient size. 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 Artifact from the repair obscures eval uation region of [place]. 6.6 centimeter area of low density within right frontal lobe. The ventricles are normal in caliber. No extra-axial fluid collection is noted. Fluid within the sinuses/ mastoids is not seen. IMPRESSION: 6.6 centimeter area of low density within the right frontal lobe probably gliosis relate d to prior bleed or infarction. No acute abnormality displayed Dr Man of the emergency room was notified at 11:34 a.m. September 03, 2023
[2023-09-03 11:52] LABS: Albumin 2.9 g/dL (3.4-5.0); Albumin/Globulin Ratio 0.7 (1.1-1.8); Anion Gap 4.5 mEq/L (5.0-15.0); Bilirubin Direct 0.4 mg/dL (0-0.2); Bilirubin Indirect, Calculated 0.6 mg/dL (0.2-0.8); Globulin 4.1 g/dL (2.3-3.5); Magnesium 2.1 mg/dL (1.6-2.4); Potassium 3.5 mEq/L (3.5-5.1); Troponin High Sensitivity 7.8 pg/mL (<58.9)
[2023-09-03 11:54] LABS: PT Prothrombin Time 16.2 SECONDS (9.5-12.5); PTT, Activated Partial Thromb 30.9 SECONDS (24.3-36.9); Protime INR 1.49
--- NOTE | 2023-09-03 12:13 | RAD REPORT ---
EXAM DESCRIPTION: CTHead angio09/03/2023 11:35 am CLINICAL HISTORY: Ataxia COMPARISON: none TECHNIQUE: 100 cc Isovue [address] angiogram of the head was obtained. 3D MIPS reconstruction performed. All CT scans are performed using dose optimization technique as appropriate and may include automated exposure control or mA/KV adjustment according to patient size. FINDINGS: Postsurgical changes basilar/ proximal right posterior cerebral artery repair. Artifact fr om the metal obscures surrounding detail somewhat. Anterior cerebral, middle cerebral and posterior cerebral arteries do not demonstrate a significant s tenosis Mild calcified plaque distal internal carotid arteries No additional aneurysm noted. No large vessel occlusion IMPRESSION: Postsurgical changes basilar/ proximal right posterior cerebral artery repair No acute abnormality displayed
--- NOTE | 2023-09-03 12:13 | RAD REPORT ---
EXAM DESCRIPTION: Parrish Angio09/03/2023 11:40 am CLINICAL HISTORY: Ataxia COMPARISON: None TECHNIQUE: 100 cc Isovue [address] angiogram of the neck was obtained. 3D MIPS reconstruction performed. All CT scans are performed using dose optimization technique as appropriate and may include automated exposure control or mA/KV adjustment according to patient size. FINDINGS: Great vessels unremarkable Mild plaque within common carotid, internal carotid and external carotid arteries bilaterally. No dissection is seen. No high-grade stenosis [place] Mild stenosis 0 to 49 % Moderate stenosis 50-69% Severe stenosis 70-99% IMPRESSION: No significant abnormality is displayed
--- NOTE | 2023-09-03 12:17 | RAD REPORT ---
EXAM DESCRIPTION: [place] Single View09/03/2023 11:59 am CLINICAL HISTORY: hypotension COMPARISON: none FINDINGS: The lungs appear clear of acute infiltrate. The heart is normal size IMPRESSION: No acute abnormalities displayed
[2023-09-03 12:26] LABS: Sqamous Epithelial <5 /HPF (None Seen); Urine Bacteria 20-50 /HPF (<20); Urine Bilirubin NEGATIVE (Negative); Urine Blood 2+ (Negative); Urine Clarity Extremely Turbid (Clear); Urine Color Light-Orange (Yellow); Urine Culture Reflex Order REFLEXED; Urine Glucose 4+ (Negative); Urine Ketones NEGATIVE (Negative); Urine Micro Reflex YN NO BILL MICROSCOPIC; Urine Nitrite NEGATIVE (Negative); Urine Protein 1+ (Negative); Urine RBC >50 /HPF (None Seen); Urine Urobilinogen 1+ (Normal); Urine WBC >50 /HPF (<5); Urine WBC Clump Rare /HPF (None Seen)
[2023-09-03 12:27] LABS: Specific Gravity ND (1.005-1.030)
--- NOTE | 2023-09-03 12:30 | EDPHYS ---
Physician Documentation [facility] Name: Reta Sutherland Age: 63 yrs Sex: Female : 1960 Arrival Date: 09/03/2023 Time: 10:45 Bed 4 Private MD: ED Physician Mark Man HPI: 09/02 11:32 This 63 yrs old Female presents to ER via Wheelchair with complaints of Sent by Dr antonia Whitlock: Low blood pressure,dizziness,weakness. 11:32 63-year-old female with history of prior CVA, hypothyroidism, osteoporosis, diabetes sp3 currently on antiplatelet agents sent by Dr. Whitlock's office for dizziness and generalized weakness. Patient's caregiver also noticed this morning that her gait and speech was often slurred and so brought him in additionally for that. After patient was seen by me I activated a stroke alert. Patient denies any chest pain, shortness of breath, abdominal pain, fever, headache or any other signs or symptoms on ROS at this time.. Historical: - Allergies: 11:01 PENICILLINS; hb - PMHx: 11:01 Cerebrovascular accident; Diabetes - IDDM; Hypertension; Hypothyroidism; Osteoporosis; hb - Immunization history:: Adult Immunizations up to date. - Infectious Disease History:: Denies. - Social history:: Smoking status: Patient denies any tobacco usage or history of. ROS: 11:33 Constitutional: Negative for fever, chills, and weight loss, Eyes: Negative for injury, sp3 pain, redness, and discharge, ENT: Negative for injury, pain, and discharge, Neck: Negative for injury, pain, and swelling, Cardiovascular: Negative for chest pain, palpitations, and edema, Respiratory: Negative for shortness of breath, cough, wheezing, and pleuritic chest pain, Abdomen/GI: Negative for abdominal pain, nausea, vomiting, diarrhea, and constipation, Back: Negative for injury and pain, MS/Extremity: Negative for injury and deformity, Skin: Negative for injury, rash, and discoloration, Psych: Negative for depression, anxiety, suicide ideation, homicidal ideation, and hallucinations, Allergy/Immunology: Negative for hives, rash, and allergies, Endocrine: Negative for neck swelling, polydipsia, polyuria, polyphagia, and marked weight changes, 11:33 All other systems are negative, Exam: 11:34 Constitutional: This is a well developed, well nourished patient who is awake, alert, sp3 and in no acute distress. Head/Face: Normocephalic, atraumatic. Eyes: Pupils equal round and reactive to light, extra-ocular motions intact. Lids and lashes normal. Conjunctiva and sclera are non-icteric and not injected. Cornea within normal limits. Periorbital areas with no swelling, redness, or edema. Neck: Trachea midline, no thyromegaly or masses palpated, and no cervical lymphadenopathy. Supple, full range of motion without nuchal rigidity, or vertebral point tenderness. No Meningismus. Chest/axilla: Normal chest wall appearance and motion. Nontender with no deformity. No lesions are appreciated. Cardiovascular: Regular rate and rhythm with a normal S1 and S2. No gallops, murmurs, or rubs. Normal PMI, no JVD. No pulse deficits. Respiratory: Lungs have equal breath sounds bilaterally, clear to auscultation and percussion. No rales, rhonchi or wheezes noted. No increased work of breathing, no retractions or nasal flaring. Abdomen/GI: Soft, non-tender, with normal bowel sounds. No distension or tympany. No guarding or rebound. No evidence of tenderness throughout. Back: No spinal tenderness. No costovertebral tenderness. Full range of motion. Skin: Warm, dry with normal turgor. Normal color with no rashes, no lesions, and no evidence of cellulitis. MS/ Extremity: Pulses equal, no cyanosis. Neurovascular intact. Full, normal range of motion. Psych: Awake, alert, with orientation to person, place and time. Behavior, mood, and affect are within normal limits. 11:34 ENT: Dry mucous membranes. 11:34 Neuro: Mild slurred speech noted however patient is alert and oriented and the remainder of all cognition is intact. Remainder of neurological exam is normal. NIH stroke scale would be a 1., 11:57 ECG was reviewed by the Attending Physician. EKG demonstrates normal sinus rhythm at 76 sp3 bpm with normal intervals, normal axis, occasional ectopy and nonspecific diffuse ST/changes without evidence of acute ischemia. Vital Signs: 10:59 BP 125 / 82; Pulse 67; Resp 17; Temp 97.8(O); Pulse Ox 98% on R/A; Weight 56.25 kg; hb Height 5 ft. 2 in. ; Pain 2/10; 11:47 BP 134 / 72; Pulse 70; Resp 22; Pulse Ox 100% on R/A; ld1 12:00 BP 138 / 73; Pulse 65; Resp 15; Pulse Ox 97% ; ko1 10:59 Body Mass Index 22.68 (56.25 kg, 157.48 cm) hb 10:59 Pain Scale: Adult hb NIH Stroke Scale Scores: 11:50 NIHSS Score: 0 ld1 MDM: 10:59 Patient medically screened. sp3 11:35 Data reviewed: vital signs, nurses notes, lab test result(s), EKG, radiologic studies. sp3 ED course: 63-year-old female with prior CVA now with generalized weakness and potential need focal deficits. Code stroke was initiated. Denies stroke scale is a 1. CT scan of the head noncontrast initially is negative as reported by the radiologist. Remainder of workup is pending. Differential diagnosis includes electrolyte abnormality, CVA/TIA spectrum, UTI, other infection, among others. Disposition pending workup and patient course with probable admission.. 12:29 ED course: Patient with UTI on urinalysis. We will start on Bactrim and she can follow sp3 back up with her doctor. Remainder of CVA workup is all negative.. 09/02 11:20 Order name: Basic Metabolic Panel; Complete Time: 11:56 sp3 09/02 11:20 Order name: CBC with Diff; Complete Time: 11:56 3 09/02 11:20 Order name: Hepatic Function; Complete Time: 11:56 3 09/02 11:20 Order name: High Sensitivity Troponin; Complete Time: 11:56 sp3 09/02 11:20 Order name: Magnesium; Complete Time: 11:56 3 09/02 11:20 Order name: Protime (+inr); Complete Time: 11:56 3 09/02 11:20 Order name: Ptt, Activated; Complete Time: 11:56 3 09/02 11:51 Order name: Glucose, Ancillary Testing; Complete Time: 11:56 EDMT 09/02 11:56 Order name: UAM; Complete Time: 12:28 sp3 09/02 12:30 Order name: Urine Culture EDMT 09/02 11:20 Order name: CT Head Angio; Complete Time: 12:23 sp3 09/02 11:20 Order name: CT Neck Angio; Complete Time: 12:23 sp3 09/02 11:20 Order name: CT Stroke Brain w/o Contrast; Complete Time: 11:56 sp3 09/02 11:20 Order name: Stroke CXR 1 View; Complete Time: 12:23 sp3 09/02 11:20 Order name: Accucheck; Complete Time: 11: sp3 09/02 11:20 Order name: Cardiac monitoring; Complete Time: 11:47 sp3 09/02 11:20 Order name: EKG - Nurse/Tech; Complete Time: 11: sp3 09/02 11:20 Order name: IV Saline Lock; Complete Time: : sp3 09/02 11:20 Order name: Labs collected and sent; Complete Time: sp3 09/02 11:20 Order name: NPO; Complete Time: : sp3 09/02 11:20 Order name: O2 Per Protocol; Complete Time: sp3 09/02 11:20 Order name: O2 Sat Monitoring; Complete Time: sp3 09/02 11:20 Order name: Stroke Swallow Screen; Complete Time: : sp3 Administered Medications: 13:08 Drug: Trimethoprim-Sulfamethoxazole PO (160 mg-800 mg (DS) 1 tablet PO once Route: PO; ld1 Disposition Summary: 09/03/23 12:30 Discharge Ordered Notes: Location: Home sp3 Condition: Stable sp3 Diagnosis - UTI, generalized weakness, dehydration sp3 Followup: sp3 - With: Private Physician - When: Upon discharge from the Emergency Department - Reason: Continuance of care Discharge Instructions: - Discharge Summary Sheet sp3 - Urinary Tract Infection, Adult sp3 Forms: - Medication Reconciliation Form sp3 - Thank You Letter sp3 - Antibiotic Education sp3 - Prescription Opioid Use sp3 - Patient Portal Instructions sp3 - Leadership Thank You Letter sp3 Prescriptions: - Bactrim DS 800-160 mg Oral Tablet - take 1 tablet ORAL route every 12 hours for 10 days; 20 tablet; Refills: 0, sp3 Product Selection Permitted NIH Stroke Scale - NIH Stroke Score Date: 09/03/2023 Time: 11:50 Total Score = 0 10. Dysarthria (speech clarity - read or repeat words) - 0(Normal) 11. Extinction and Inattention (visual/tactile/auditory/spatial/personal) - 0(No abnormality) 1a. Level of Consciousness (LOC) - 0(Alert) 1b. Level of Consciousness (LOC) (Month \T\ Age) - 0(Both) 1c. LOC Commands (Open \T\ Closes Eyes/Retail Customer Service Specialist) - 0(Both) 2. Best Gaze (Lateral Gaze Paresis) - 0(Normal) 3. Visual Field Loss - 0(No visual loss) 4. Facial Palsy - 0(Normal) 5a. Left Arm: Motor (10-second hold) - 0(No drift) 5b. Right Arm: Motor (10-second hold) - 0(No drift) 6a. Left Leg: Motor (5-second hold - always test supine) - 0(No drift) 6b. Right Leg: Motor (5-second hold - always test supine) - 0(No drift) 7. Limb Ataxia (finger/nose \T\ heel/hawkins - test with eyes open) - 0(Absent) 8. Sensory Loss (pinprick arms/legs/face) - 0(Normal) 9. Best Language: Aphasia (description/naming/reading) - 0(No aphasia) Initials: ld1 Signatures: Dispatcher [employer] EDMS Chari Hinds RN RN Keren Li RN RN ld1 Mark Man MD MD sp3 Corrections: (The following items were deleted from the chart) 11:21 11:20 BASIC METABOLIC PANEL+C.LAB.BRZ ordered. EDMS EDMS 11: 11:20 CBC+H.LAB.BRZ ordered. EDMS EDMS 11: 11:20 HEPATIC FUNCTION+C.LAB.BRZ ordered. EDMS EDMS 11: 11:20 Troponin High Sensitivity+C.LAB.BRZ ordered. EDMS EDMS 11:21 11:20 MAGNESIUM+C.LAB.BRZ ordered. EDMS EDMS 11:21 11:20 PROTIME (+INR)+COAG.LAB.BRZ ordered. EDMS EDMS 11:21 11:20 PTT, ACTIVATED+COAG.LAB.BRZ ordered. EDMS EDMS 11:21 11:21 Neck Angio+CT.RAD.BRZ ordered. EDMS EDMS 11:21 11:21 CT-STROKE BRAIN W/O CONTRAST+CT.RAD.BRZ ordered. EDMS EDMS 11: 11:21 Chest Single View+RAD.RAD.BRZ ordered. EDMS EDMS
--- NOTE | 2023-09-03 12:30 | ER ---
Nurse's Notes [facility] Name: Reta Sutherland Age: 63 yrs Sex: Female : 1960 Arrival Date: 09/03/2023 Time: 10:45 Bed 4 Private MD: Diagnosis: UTI, generalized weakness, dehydration Presentation: 09/02 10:59 Chief complaint: Sent by Dr. Whitlock for SBP 90s, generalized weakness x 2 days, and >20 hb lb weight loss over the last month. Coronavirus screen: At this time, the client does not indicate any symptoms associated with coronavirus-19. Ebola Screen: No symptoms or risks identified at this time. Initial Sepsis Screen: Does the patient meet any 2 criteria? No. Patient's initial sepsis screen is negative. Does the patient have a suspected source of infection? No. Patient's initial sepsis screen is negative. Risk Assessment: Do you want to hurt yourself or someone else? Patient reports no desire to harm self or others. Onset of symptoms was September 01, 2023. 10:59 Method Of Arrival: Wheelchair hb 10:59 Acuity: DEION 3 hb Triage Assessment: 11:01 General: Appears in no apparent distress. Behavior is calm, cooperative. Pain: Pain hb currently is 2 out of 10 on a pain scale. Neuro: Level of Consciousness is awake, alert, obeys commands, Oriented to person, place, time, situation. Cardiovascular: Patient's skin is warm and dry. Respiratory: Respiratory effort is even, unlabored, Respiratory pattern is regular, symmetrical. Historical: - Allergies: 11:01 PENICILLINS; hb - PMHx: 11:01 Cerebrovascular accident; Diabetes - IDDM; Hypertension; Hypothyroidism; Osteoporosis; hb - Immunization history:: Adult Immunizations up to date. - Infectious Disease History:: Denies. - Social history:: Smoking status: Patient denies any tobacco usage or history of. Screenin:30 [facility] ED Fall Risk Assessment (Adult) History of falling in the last 3 months, ld1 including since admission Yes- single mechanical fall (1 pt) Confusion or Disorientation No (0 pts) Intoxicated or Sedated No (0 pts) Impaired Gait Yes (1 pt) Mobility Assist Device Used No (0 pt) Altered Elimination No (0 pt) Score/Fall Risk Level 0 - 2 = Low Risk Oriented to surroundings, Maintained a safe environment, Educated pt \T\ family on fall prevention, incl call for assistance when getting out of bed, Assessed \T\ reinforced patient's understanding of fall precautions, Provided non-skid footwear, Hourly rounding (assess needs \T\ fall precautionary measures) done, Used ambulatory aids as needed (educated on \T\ assisted with), Used gait belt as appropriate. Abuse screen:. Nutritional screening: No deficits noted. Tuberculosis screening: No symptoms or risk factors identified. [place] Swallow Protocol Oral Mechanism Examination Facial Symmetry: Normal, Motion: Normal, Lip Closure: Normal, Oral Mechanism Result: Normal. 3 oz Water Swallow Challenge: Pt able to drink all water without stopping, coughing, choking or throat clearing: Yes Result: PASS Notified: Mark Man MD. 11:50 VAN Screening: Arm Drift: Patient shows no arm weakness. Patient is VAN negative. ld1 Visual Disturbance: No visual disturbance noted. Aphasia: No aphasia noted. Neglect: No neglect noted. Assessment: 11:28 Reassessment: Pt to CT 1116. ld1 11:47 General: Appears in no apparent distress. comfortable, Behavior is calm, cooperative, ld1 appropriate for age. Pain: Denies pain. Neuro: Level of Consciousness is awake, alert, obeys commands, Oriented to person, place, time, situation, Appropriate for age. Neuro: Portfolio Administrator are equal bilaterally Moves all extremities. Speech is normal, Facial symmetry appears normal, Reports caregiver reports slurred speech and unsteady gait . Cardiovascular: Capillary refill < 3 seconds Patient's skin is warm and dry. Rhythm is sinus rhythm. Respiratory: Airway is patent Respiratory effort is even. GI: Abdomen is flat, non-distended. : No signs and/or symptoms were reported regarding the genitourinary system. EENT: No signs and/or symptoms were reported regarding the EENT system. Derm: No signs and/or symptoms reported regarding the dermatologic system. Musculoskeletal: No signs and/or symptoms reported regarding the musculoskeletal system. Vital Signs: 10:59 BP 125 / 82; Pulse 67; Resp 17; Temp 97.8(O); Pulse Ox 98% on R/A; Weight 56.25 kg; hb Height 5 ft. 2 in. ; Pain 2; 11:47 BP 134 / 72; Pulse 70; Resp 22; Pulse Ox 100% on R/A; ld1 12:00 BP 138 / 73; Pulse 65; Resp 15; Pulse Ox 97% ; ko1 10:59 Body Mass Index 22.68 (56.25 kg, 157.48 cm) hb 10:59 Pain Scale: Adult hb NIH Stroke Scale Scores: 11:50 NIHSS Score: 0 ld1 ED Course: 10:48 Patient arrived in ED. ra3 10:54 Mark Man MD is Attending Physician. sp3 11:01 Triage completed. hb 11:02 Arm band placed on. hb 11:03 Gabby Ralph, DANIELLE is Primary Nurse. ko1 11:18 Inserted saline lock: 20 gauge in left antecubital area, using aseptic technique. Blood ld1 collected. 11:30 CT Stroke Brain w/o Contrast In Process Unspecified. EDMS 11:36 CT Head Angio In Process Unspecified. EDMS 11:42 CT Neck Angio In Process Unspecified. EDMS 11:50 Patient has correct armband on for positive identification. Placed in gown. Bed in low ld1 position. Call light in reach. Side rails up X2. monitoring tech on. Pulse ox on. NIBP on. Door closed. Noise minimized. Warm blanket given. 11:50 No provider procedures requiring assistance completed. ld1 12:01 Stroke CXR 1 View In Process Unspecified. EDMS 12:15 UAM Sent. ld1 13:08 IV discontinued, intact, bleeding controlled, No redness/swelling at site. ld1 Administered Medications: 13:08 Drug: Trimethoprim-Sulfamethoxazole PO (160 mg-800 mg (DS) 1 tablet PO once Route: PO; ld1 Medication: 13:08 VIS not applicable for this client. ld1 Outcome: 12:30 Discharge ordered by . sp3 13:08 Discharged to home via wheelchair, with family, ld1 13:08 Condition: stable 13:08 Discharge instructions given to patient, Instructed on discharge instructions, follow up and referral plans. medication usage, Demonstrated understanding of instructions, follow-up care, medications, Prescriptions given X 1, 13:08 Patient left the ED. ld1 NIH Stroke Scale - NIH Stroke Score Date: 09/03/2023 Time: 11:50 Total Score = 0 10. Dysarthria (speech clarity - read or repeat words) - 0(Normal) 11. Extinction and Inattention (visual/tactile/auditory/spatial/personal) - 0(No abnormality) 1a. Level of Consciousness (LOC) - 0(Alert) 1b. Level of Consciousness (LOC) (Month \T\ Age) - 0(Both) 1c. LOC Commands (Open \T\ Closes Eyes/Dental Assistant Teacher) - 0(Both) 2. Best Gaze (Lateral Gaze Paresis) - 0(Normal) 3. Visual Field Loss - 0(No visual loss) 4. Facial Palsy - 0(Normal) 5a. Left Arm: Motor (10-second hold) - 0(No drift) 5b. Right Arm: Motor (10-second hold) - 0(No drift) 6a. Left Leg: Motor (5-second hold - always test supine) - 0(No drift) 6b. Right Leg: Motor (5-second hold - always test supine) - 0(No drift) 7. Limb Ataxia (finger/nose \T\ heel/hawkins - test with eyes open) - 0(Absent) 8. Sensory Loss (pinprick arms/legs/face) - 0(Normal) 9. Best Language: Aphasia (description/naming/reading) - 0(No aphasia) Initials: ld1 Addendum: 09/06/2023 07:24 Addendum: Culture Results: Positive urine culture. No further action required. eb Bacteria sensitive to prescribed antibiotic. Signatures: Dispatcher [employer] Chari Leonard RN Emma Nathan Lauren, RN RN ld1 Mark Man MD MD sp3 Gabby Ralph RN RN ko1 Elli Nowak ra3
[2023-09-03] MEDS ORDERED: SULFAMETH/TRIMETHOPRIM 200 MG/5 ML UDBOT ONE (13:00)
[2023-09-03 18:14] VITALS: BP 138/73; TEMP 97.8; O2SAT 97
== END 2023-09-03 13:08 | disposition home or self-care (01) ==
LOC: ER 10:45
DX: N39.0 Urinary tract infection, site not specified (principal); E86.0 Dehydration; I10 Essential (primary) hypertension; Z86.73 Personal history of transient ischemic attack (TIA), and cerebral infarction without residual deficits; Z88.0 Allergy status to penicillin
CPT/HCPCS: 93005; 87088; 85025; 81001; 87086; 80048; 36415; 83735; 85610; 82565; 82947; 80076; 85730; 87077; 87186; 84484; 70496; 70498; 70450; 71045; 99285; Q9967